=== PATIENT | male | born 1945 | race Caucasian/White ===

== ENCOUNTER 2024-11-14 22:35 | Observation (INO) ==
[2024-11-15] MEDS: 0.9 % SODIUM CHLORIDE 1000 ML 1,000 ML IV SCH (03:31)
[2024-11-15] MEDS: ALBUMIN HUMAN 25% 100 ML IV SCH (03:36)
[2024-11-15] MEDS: 0.9 % SODIUM CHLORIDE 1000 ML 1,000 ML IV ONE (07:44)
[2024-11-15] MEDS: ALBUMIN HUMAN 25% 200 ML IV ONE (07:44)
[2024-11-15 12:26] VITALS: RESP 16
[2024-11-15 12:54] VITALS: PULSE 59
--- NOTE | 2024-11-15 12:59 | Discharge Summary ---
DS: Providers Provider Date of admission: 11/14/24 22:35 Primary care physician: Jane Ritchie DO Admitting clinician: Jane Ritchie Attending physician on admission: Omari Feliz Attending physician on discharge: America Hurt Discharging clinician: America Hurt Anticipated date of discharge: 11/15/24 DS: Diagnosis Discharge Diagnosis (1) Low hemoglobin: Plan Low hemoglobin Administered onbe unit PRBC, albumin and iv fluids as directed on admission from referring physician. DS: Summary Hospital Course Hospital Course: Mr. Tovar was sent over to the hospital for low hemoglobin 7.4, to receive blood transfusion, and albumin, IV Fluids. He received 2000ml NS, on unit PRBC and Albumin. Stay uneventful with patient at his baseline. Ready to discharge back to [facility]. Time spent discussing smoking cessation with patient: more than 10 minutes Status at Discharge Cognitive/behavioral status at discharge: Stable Functional status at discharge: bed bound Overall status at discharge: patient is back to baseline Time Spent with Patient Time attestation: Total time spent providing and/or coordinating discharge services: Time spent: greater than 30 minutes Exam Constitutional: normal general appearance (weak, labile. Easy to arouse. ) Vital Signs - 24 hr 11/15/24 01:16 11/15/24 01:16 11/15/24 03:52 Temperature 97.9 F 97.8 F Pulse Rate Pulse Rate [Brachi al] 61 81 Respiratory Rate 16 16 Blood Pressure Blood Pressure [Le ft Arm] 128/53 139/56 Pulse Oximetry 95 96 Oxygen Delivery Me thod Room Air Room Air Room Air 11/15/24 08:00 11/15/24 08:56 11/15/24 08:56 Temperature 98.5 F 98.5 F 98.5 F Pulse Rate 73 73 Pulse Rate [Brachi al] 73 Respiratory Rate 16 16 16 Blood Pressure 104/48 104/48 Blood Pressure [Le ft Arm] 104/48 Pulse Oximetry 92 L 92 L 92 L Oxygen Delivery Ms thod Room Air 11/15/24 09:15 11/15/24 09:26 11/15/24 10:15 Temperature 98.6 F 98.5 F 98.6 F Pulse Rate 69 73 69 Pulse Rate [Brachi al] Respiratory Rate 16 16 16 Blood Pressure 101/34 104/48 117/45 Blood Pressure [Le ft Arm] Pulse Oximetry 92 L 92 L Oxygen Delivery Me thod 11/15/24 11:15 11/15/24 12:15 Temperature 98.5 F 98.6 F Pulse Rate 60 52 L Pulse Rate [Brachi al] Respiratory Rate 18 16 Blood Pressure 108/40 114/38 Blood Pressure [Le ft Arm] Pulse Oximetry 93 L 93 L [facility]: normocephalic and head/scalp atraumatic Eyes: conjunctivae normal Respiratory: breath sounds equal bilaterally and clear to auscultation bilaterally Cardiovascular: normal heart rate noted and regular rhythm noted Gastrointestinal: abdomen soft to palpation Genitourinary: deferred Extremities: normal to inspection Neurology: no sensory deficits noted Psychiatry: cooperative and affect normal Skin: warm pale skin DS: Data Data Completed and Pending Labs on day of discharge: Labs from last 24 hours 11/15/24 11/14/24 01:15 01:15 Magnesium 2.2 Blood Type A Positive Antibody Screen Negative Crossmatch (AHG) See Detail Discharge Plan Discharge Discharge Medications: No Action latanoprost 0.005 % drops 1 drp OPHTHALMIC (EYE) DAILY acetaminophen 325 mg tablet 650 mg PO Q6H PRN (Reason: fever or pain) ascorbic acid (vitamin C) 500 mg tablet 500 mg PO DAILY aspirin 81 mg tablet,chewable 81 mg PO DAILY baclofen 10 mg tablet 10 mg PO Q8H PRN (Reason: muscle spasm) diphenhydramine HCl [[id number]] 25 mg tablet 50 mg PO Q8H PRN (Reason: itching) docusate sodium 50 mg/5 mL liquid 100 mg feeding tube BID pregabalin 50 mg capsule 50 mg feeding tube DAILY polyethylene glycol 3350 [Miralax] 17 gram powder in packet 17 g PO BID PRN (Reason: constipation) mirtazapine 15 mg tablet 7.5 mg feeding tube BEDTIME multivitamin Tablet 1 tab feeding tube DAILY triamcinolone acetonide [24 Hour Nasal Allergy] 55 mcg aerosol,spray 1 spray intranasal BID Rx Instructions: administer into each nostril Advanced Eye Relief 1-0.3 % drops 1 drp ophthalmic (eye) DAILY PRN (Reason: dry eye(s)) sennosides [senna] 8.6 mg tablet 8.6 mg PO BEDTIME hydroxyzine pamoate 25 mg capsule 25 mg feeding tube QID ondansetron HCl 4 mg tablet 4 mg feeding tube Q8H PRN (Reason: nausea and vomiting) bumetanide 2 mg tablet 2 mg PO DAILY Qty: 30 0RF Rx Instructions: daily weights atorvastatin 40 mg tablet 40 mg feeding tube DAILY lansoprazole 30 mg capsule,delayed release(DR/EC) 30 mg feeding tube DAILY fenofibrate 54 mg tablet 54 mg feeding tube BEDTIME tamsulosin 0.4 mg capsule 0.4 mg PO BID Rx Instructions: G-TUBE furosemide 40 mg tablet 40 mg feeding tube DAILY carvedilol 6.25 mg tablet 6.25 mg feeding tube BID montelukast 10 mg tablet 10 mg feeding tube BEDTIME oxycodone 5 mg tablet 5 mg feeding tube Q4H PRN (Reason: pain) ipratropium-albuterol 0.5 mg-3 mg(2.5 mg base)/3 mL solution for nebulization 3 ml inhalation Q6H nystatin [Nystop] 100,000 unit/gram powder 1 applic TOPICAL DAILY PRN (Reason: YEAST) Rx Instructions: APPLY TO PERINEAL AREA PRN FOR YEAST UNTIL HEALED OR RESOLVED Hospital Course: Mr. Tovar was sent over to the hospital for low hemoglobin 7.4, to receive blood transfusion, and albumin, IV Fluids. He received 2000ml NS, on unit PRBC and Albumin. Stay uneventful with patient at his baseline. Ready to discharge back to Detention. Print Language: Armenian Forms: Portal[facility] Access Inst
[2024-11-15 13:43] VITALS: BP 97/55; TEMP 98.4
[2024-11-15 16:01] LABS: Carbon Dioxide 20 mmol/L (21-32); Glucose 80 mg/dL (70-110); Potassium 4.9 mmol/L (3.6-5.2); Sodium 150 mmol/L (136-145)
[2024-11-15 16:05] LABS: Basophils%(Percent) Auto 0.6 (0.0-1.3); Eosinophils#(Absolute)Auto 0.7 (0.0-0.3); Eosinophils%(Percent) Auto 8.1 % (0.0-4.0); Granulocytes % - Auto 72.1 % (49.1-73.1); Granulocytes#(Absolute)- Auto 6.2 (2.0-6.2); Mean Corpuscular Volume 95.2 fl (81.9-96.5); Monocytes #(Absolute)- Auto 0.6 (0.2-0.8); Monocytes %(Percent)- Auto 7.2 % (4.5-10.7); Platelet Count 110 K/uL (142-355); White Blood Count 8.6 K/uL (3.7-9.6)
[2024-11-15 16:20] LABS: Hematocrit 23.6 % (41.3-50.1)
== END 2024-11-15 13:15 ==
LOC: MS
PROVIDERS: ADMIT Family Medicine; ATTEND Family Medicine
DX: D64.9 Anemia, unspecified

== ENCOUNTER 2024-11-30 02:28 | Observation (INO) ==
--- NOTE | 2024-11-30 03:01 | Emergency Department Note ---
HPI - Altered Mental Status General Chief Complaint: Altered Mental Status Stated Complaint: AMS Time Seen by Provider: 11/30/24 02:36 Source: family and caregiver Limitations: altered mental status History of Present Illness HPI narrative: 79-year-old male brought over for nursing staff from the [facility], noted with increased confusion, lethargy, and generalized weakness throughout the day and this evening. Per correction staff patient was noted to be less responsive this evening around dinner, continued into the inspector and sorter. Patient with a plethora of healthcare issues to include recurrent sepsis from pneumonia and UTIs. On arrival to the ED patient alert orient x 1, confused. Daughter at bedside. MD complaint: altered mental status Severity: moderate Consistency of symptoms: getting Worse Context: history of similar presentation Associated symptoms: malaise and weakness Related Data Home Medications Medication Instructions Recorded Confirmed atorvastatin 40 mg tablet 40 mg feeding tube DAILY 01/29/24 10/30/24 carvedilol 6.25 mg tablet 6.25 mg feeding tube BID 01/29/24 10/30/24 fenofibrate 54 mg tablet 54 mg feeding tube BEDTIME 01/29/24 10/30/24 furosemide 40 mg tablet 40 mg feeding tube DAILY 01/29/24 10/30/24 ipratropium 0.5 mg-albuterol 3 mg 3 ml inhalation Q6H 01/29/24 10/30/24 (2.5 mg base)/3 mL nebulization soln lansoprazole 30 mg capsule,delayed 30 mg feeding tube DAILY 01/29/24 10/30/24 release montelukast 10 mg tablet 10 mg feeding tube BEDTIME 01/29/24 10/30/24 nystatin 100,000 unit/gram topical 1 applic topical DAILY PRN YEAST 01/29/24 10/30/24 powder (Nystop) oxycodone 5 mg tablet 5 mg feeding tube Q4H PRN pain 01/29/24 10/30/24 tamsulosin 0.4 mg capsule 0.4 mg PO BID 01/29/24 10/30/24 latanoprost 0.005 % eye drops 1 drp ophthalmic (eye) DAILY 06/21/24 10/30/24 acetaminophen 325 mg tablet 650 mg PO Q6H PRN fever or pain 10/30/24 10/30/24 ascorbic acid (vitamin C) 500 mg 500 mg PO DAILY 10/30/24 10/30/24 tablet aspirin 81 mg chewable tablet 81 mg PO DAILY 10/30/24 10/30/24 baclofen 10 mg tablet 10 mg PO Q8H PRN muscle spasm 10/30/24 10/30/24 diphenhydramine HCl 25 mg tablet 50 mg PO Q8H PRN itching 10/30/24 10/30/24 ([id number]) docusate sodium 50 mg/5 mL oral 100 mg feeding tube BID 10/30/24 10/30/24 liquid hydroxyzine pamoate 25 mg capsule 25 mg feeding tube QID 10/30/24 10/30/24 mirtazapine 15 mg tablet 7.5 mg feeding tube BEDTIME 10/30/24 10/30/24 multivitamin 1 tab feeding tube DAILY 10/30/24 10/30/24 ondansetron HCl 4 mg tablet 4 mg feeding tube Q8H PRN nausea 10/30/24 10/30/24 and vomiting polyethylene glycol 3350 17 gram 17 g PO BID PRN constipation 10/30/24 10/30/24 oral powder packet (Miralax) pregabalin 50 mg capsule 50 mg feeding tube DAILY 10/30/24 10/30/24 propylene glycol 1 %-glycerin 0.3 1 drp ophthalmic (eye) DAILY PRN 10/30/24 10/30/24 % eye drops (Advanced Eye Relief) dry eye(s) sennosides 8.6 mg tablet (senna) 8.6 mg PO BEDTIME 10/30/24 10/30/24 triamcinolone acetonide 55 mcg 1 spray intranasal BID 10/30/24 10/30/24 nasal spray aerosol (24 Hour Nasal Allergy) Previous Rx's Medication Instructions Recorded bumetanide 2 mg tablet 2 mg PO DAILY chf #30 tabs 11/03/24 Allergies Allergy/AdvReac Type Severity Reaction Status Date / Time cefdinir Allergy Mild Verified 11/30/24 03:17 codeine Allergy Mild Verified 11/30/24 03:17 primidone Allergy Mild Verified 11/30/24 03:17 Review of Systems Status of ROS unobtainable due to medical condition and unobtainable due to mental status [facility] Medical History (Updated 11/30/24 @ 03:28 by Liana Phelps RN) CHF (congestive heart failure), NYHA class III End of life care Acute renal failure superimposed on stage 5 chronic kidney disease, not on chronic dialysis Moderate protein malnutrition Pruritic dermatitis Cognitive communication deficit BPH (benign prostatic hyperplasia) Secondary hyperparathyroidism (of renal origin) Chronic kidney disease, stage 4 (severe) Acute kidney failure Osteoarthritis Gout Cellulitis of groin GERD (gastroesophageal reflux disease) Peripheral vascular disease Heart failure Atherosclerotic heart disease Hypertension Glaucoma Toxic encephalopathy Sleep apnea Adrenocortical insufficiency Diabetes mellitus Anemia Urinary retention Vascular dementia of 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 behavioral disturbance Generalized edema Acute nephrotic syndrome ARF (acute respiratory failure) Melioidosis Difficulty in walking Dysphagia Acute cystitis without hematuria COPD (chronic obstructive pulmonary disease) CHF (congestive heart failure) Social History Smoking status: never smoker Problems where you live: no known problems Highest level of school completed/degree received: decline to answer Feel stressed/tense/nervous/anxious/difficulty sleeping: not at all Life stressor details: n/a Due to disability, difficulty making decisions: No Exam Constitutional: normal general appearance and no apparent distress Vital Signs - 24 hr 11/30/24 02:29 11/30/24 02:32 11/30/24 03:00 Temperature 97.9 F Pulse Rate 66 68 Respiratory Rate 12 15 Blood Pressure 124/57 129/59 Pulse Oximetry 84 L 96 98 Oxygen Delivery Me thod Room Air Nasal Cannula Nasal Cannula Oxygen Flow Rate 2 2 11/30/24 04:00 11/30/24 04:26 Temperature Pulse Rate 82 82 Respiratory Rate 15 18 Blood Pressure 124/67 134/64 Pulse Oximetry 99 99 Oxygen Delivery Me thod Nasal Cannula Nasal Cannula Oxygen Flow Rate 2 2 A&Ox1, confused, lethargic HENMT: normocephalic and head/scalp atraumatic dry mucus membranes Eyes: PERRL and conjunctivae normal Neck/C-Spine: visual inspection normal, trachea midline and supple Lymph: no lymphadenopathy noted Chest: inspection of chest normal Respiratory: SaO2 89-90% RA, Coarse lung sounds, mild increased work of breathing Cardiovascular: normal heart rate noted, regular rhythm noted, no gallop, no rub, no murmur and no JVD Gastrointestinal: abdomen normal to inspection, abdomen soft to palpation, nontender to palpation, no masses and no ascites PEG tube present Genitourinary: no CVA tenderness Back/Pelvis: spine normal to inspection Extremities: Multiple decubitus ulcers, vascular ulcerations of the toes, bilateral Neurology: Alert and oriented 1, confused, lethargic Psychiatry: as above Skin: skin color normal Course Reevaluation(s) Reevaluation #1: COURSE: Vital signs stable, patient resting with family at bedside. IV fluid normal saline 75 cc/hour, continuous Patient pending admission Vital Signs Vital signs: Vital Signs Temperature 97.9 F 11/30/24 02:29 Pulse Rate 66 11/30/24 02:29 Respiratory Rate 12 11/30/24 02:29 Blood Pressure 124/57 11/30/24 02:29 Pulse Oximetry 84 L 11/30/24 02:29 Oxygen Delivery Method Room Air 11/30/24 02:29 Temperature 97.9 F 11/30/24 02:29 Pulse Rate 82 11/30/24 04:26 Respiratory Rate 18 11/30/24 04:26 Blood Pressure 134/64 11/30/24 04:26 Pulse Oximetry 99 11/30/24 04:26 Oxygen Delivery Method Nasal Cannula 11/30/24 04:26 Oxygen Flow Rate 2 11/30/24 04:26 MDM - Altered Mental Status MDM Narrative Medical decision making narrative: History and physical exam consistent with Acute hyponatremia, hypochloremia secondary to underlying dehydration. Patient with multiple comorbidities to include aspiration risk with likely secondarily contributes to his episodes of dehydration. Vital signs stable, neurobaseline in the ED. CT head negative. Chest x-ray stable, chronic findings. Labs as annotated. IV normal saline gentle hydration for his EDC. Patient will be admitted to observation for continued therapy. Differential diagnosis as below. Differential Diagnosis Differential diagnosis: Likely altered mental status, delirium, dementia, hypoglycemia, hyponatremia, subarachnoid hemorrhage and sepsis Medical Records Attestation: I reviewed the patient's medical records. Lab Data Attestation: I reviewed the patient's lab results. Labs: Lab Results 11/30/24 11/30/24 Range/Units 02:50 05:15 WBC 5.3 (3.7-9.6) K/uL RBC 2.9 L (4.40-5.80) M/uL Hgb 9.5 L (14.0-17.4) gm/dL Hct 28.9 L (41.3-50.1) % MCV 98.6 H (81.9-96.5) fl MCH 32.4 (27.6-33.7) pg MCHC 32.8 L (33.0-35.7) g/dl RDW 16.5 H (11.0-14.8) % Plt Count 114 L (142-355) K/uL MPV 10.9 H (6.0-10.4) fl Gran % 55.1 (49.1-73.1) % Lymph % (Auto) 21.7 (17.6-39.05) % [place] % (Auto) 9.7 (4.5-10.7) % Eos % (Auto) 12.9 H (0.0-4.0) % Baso % (Auto) 0.6 (0.0-1.3) Lymph # (Auto) 1.1 (0.8-2.9) [place] # (Auto) 0.5 (0.2-0.8) Eos # (Auto) 0.7 H (0.0-0.3) Baso # (Auto) 0.0 (0.0-0.1) Absolute Gran (auto) 2.9 (2.0-6.2) Sodium 148 H (136-145) mmol/L Potassium 4.2 (3.6-5.2) mmol/L Chloride 112.0 H (98-107) mmol/L Carbon Dioxide 27 (21-32) mmol/L Anion Gap 9.0 (4-14) mEq/L BUN 139 H* (7-18) mg/dL Creatinine 3.7 H* (0.6-1.3) mg/dL Estimated GFR 15.9 (>59.9) Glucose 115 H (70-110) mg/dL Calcium 10.0 (8.5-10.1) mg/dL Magnesium 2.6 H (1.8-2.4) mg/dL Total Bilirubin 0.26 (0.0-1.0) mg/dL AST 44 H (15-37) U/L ALT 26 L (30-65) U/L Alkaline Phosphatase 146 H (50-136) U/L Troponin I High Sens 13.40 (4.0-60.4) ng/L Total Protein 5.7 L (6.4-8.2) g/dL Albumin 1.7 L (3.4-5.0) g/dL Lipase 25.0 (16.0-77.0) U/L Urine Color Yellow (STRAW/YELL.) Urine Appearance Clear (CLEAR) Ur Specific [place] 1.010 (1.001-1.035) Urine Protein 2+ (NEGATIVE) Urine Glucose (UA) Normal (NORMAL) Urine Ketones Negative (NEGATIVE) Urine Occult Blood Negative (NEG - TRACE) Urine Nitrite Negative (NEGATIVE) Urine Bilirubin Negative (NEGATIVE) Urine Urobilinogen Normal (NORMAL) Ur Leukocyte Esterase Negative (NEGATIVE) Fluid pH 6.0 (5 - 9) Imaging Data Imaging ordered: Chest x-ray and CT scan - head Attestation: I have reviewed the pertinent imaging results. Radiologist's impression: chronic findings, nothing acute ECG Data Attestation: I personally reviewed and interpreted this ECG as follows: ECG interpretation date: 11/30/24 Interpretation: Sinus Rhythm, rate 62, 1st degree AV Block, no STEMI Critical Care Time Critical Care Time Critical Care Time: Yes Total Critical Care Time: 35 Attestation: Acute/chronic renal failure, electrolyte protocols, multiple consultations, admission Discharge Plan Discharge Patient Disposition: Admitted As Observation Condition: Improved Chief Complaint: Altered Mental Status Clinical Impression: Acute hypernatremia, Dehydration, Chronic kidney insufficiency Interventions: ED Discharge Assessment Last Done: 11/30/24 08:00 ED Discharge Vital Sign Last Done: 11/30/24 08:00 Emergency Department Charge Sheet Last Done: 11/30/24 08:01 Time of Disposition: 08:02 Discharge Date/Time: 11/30/24 08:01
[2024-11-30 03:06] LABS: Basophils%(Percent) Auto 0.6 (0.0-1.3); Eosinophils#(Absolute)Auto 0.7 (0.0-0.3); Eosinophils%(Percent) Auto 12.9 % (0.0-4.0); Granulocytes % - Auto 55.1 % (49.1-73.1); Granulocytes#(Absolute)- Auto 2.9 (2.0-6.2); Hematocrit 28.9 % (41.3-50.1); Mean Corpuscular Volume 98.6 fl (81.9-96.5); Monocytes #(Absolute)- Auto 0.5 (0.2-0.8); Monocytes %(Percent)- Auto 9.7 % (4.5-10.7); Platelet Count 114 K/uL (142-355); White Blood Count 5.3 K/uL (3.7-9.6)
[2024-11-30 03:18] LABS: Potassium 4.2 mmol/L (3.6-5.2)
[2024-11-30] MEDS: ACETAMINOPHEN 1000 MG/100 ML 1,000 MG/100 ML IV.SOLN IV PRN (04:30)
[2024-11-30 05:23] LABS: Urine Appearance CLEAR (CLEAR); Urine Blood NEGATIVE (NEG - TRACE); Urine Color YELLOW (STRAW/YELL.); Urine Urobilinogen Normal (NORMAL)
[2024-11-30] MEDS ORDERED: ONDANSETRON HCL/PF 4 MG/2 ML VIAL INJ PRN (07:22)
[2024-11-30] MEDS ORDERED: PROPYLENE GLYCOL GLYCERIN OPTH PRN (07:25)
[2024-11-30] MEDS ORDERED: BACLOFEN 10 MG TABLET PO PRN (07:25)
[2024-11-30] MEDS ORDERED: NYSTATIN 15 GM POWDER TOPICAL PRN (07:25)
[2024-11-30] MEDS: DOCUSATE SODIUM 50 MG/5 ML PEG SCH (09:51)
[2024-11-30] MEDS: 0.9 % SODIUM CHLORIDE 1000 ML 1,000 ML IV SCH (10:06)
[2024-11-30] MEDS: OXYCODONE HCL 5 MG TABLET PO PRN (10:07)
[2024-11-30] MEDS: PREGABALIN 25 MG CAPSULE PO SCH (10:08)
[2024-11-30] MEDS: ATORVASTATIN CALCIUM 40 MG TABLET PEG SCH (10:08)
[2024-11-30] MEDS: FUROSEMIDE 40 MG TABLET PEG SCH (10:08)
[2024-11-30] MEDS: BUMETANIDE 1 MG TABLET PO SCH (10:08)
[2024-11-30] MEDS: ASPIRIN 81 MG TAB.CHEW PO SCH (10:09)
[2024-11-30] MEDS: carvediloL 6.25 MG TABLET PO SCH (10:09)
[2024-11-30] MEDS: LATANOPROST 0.005% OPTH SCH (10:09)
[2024-11-30] MEDS: MULTIVITAMIN TABLET PEG SCH (10:10)
[2024-11-30] MEDS: IPRATROPIUM/ALBUTEROL SULFATE 3 ML AMPUL.NEB INH SCH (11:57)
[2024-11-30] MEDS: LANSOPRAZOLE 30 MG PEG SCH (11:57)
[2024-11-30] MEDS: PREGABALIN 50 MG FEED TUBE SCH (11:58)
[2024-11-30] MEDS: [UNRECOGNIZED DRUG - REMARK] INH SCH (11:58)
[2024-11-30] MEDS: MIRTAZAPINE 15 MG TABLET PO SCH (20:11)
[2024-11-30] MEDS: FENOFIBRATE 54 MG TABLET PO SCH (20:11)
[2024-11-30] MEDS: SENNOSIDES 8.6 MG TABLET PO SCH (20:11)
[2024-11-30] MEDS: MONTELUKAST SODIUM 10 MG TABLET PO SCH (20:11)
[2024-12-01 08:55] LABS: Potassium 4.2 mmol/L (3.6-5.2)
[2024-12-01 08:58] LABS: Basophils%(Percent) Auto 0.7 (0.0-1.3); Eosinophils#(Absolute)Auto 0.6 (0.0-0.3); Eosinophils%(Percent) Auto 10.4 % (0.0-4.0); Granulocytes % - Auto 56.6 % (49.1-73.1); Hematocrit 25.6 % (41.3-50.1); Mean Corpuscular Volume 101.9 fl (81.9-96.5); Monocytes #(Absolute)- Auto 0.5 (0.2-0.8); Monocytes %(Percent)- Auto 10.2 % (4.5-10.7); Platelet Count 115 K/uL (142-355); White Blood Count 5.3 K/uL (3.7-9.6)
--- NOTE | 2024-12-01 09:07 | History & Physical Report ---
H&P: HPI History of Present Illness Chief complaint: hypernatremia Narrative: Mr. Tovar was admitted from the [facility] on 11/30/24 due to increasing AMS. Daughter states he has progressively become confused during the week and [facility] staff accounts that he became altered yesterday evening. He has multiple comorbidities with normal admissions for UTI or PNA. CBC at his baseline. CMP showed elevated creatinine of 3.7 with his usual range near 2.0. BUN elevated 139, usual between 90-110. Daughter at bedside states they will not pursue dialysis. UA negative as well as CT head. CXR did show R pleural opacities which appears to be ongoing since September although clear prior to then; he has undergone abx treatment during those admits. He is oriented for nursing staff, but during assessment does have some garbled speech and fell asleep during assessment. He is currently on oxygen for admitting low O2 saturations in the 80s and he does not use O2 at the [facility]. He has had some hypotension since admit but improving. Tmax in the last 24hrs 99.7. Review of Systems Status of ROS: unobtainable due to medical condition and unobtainable due to mental status Neurological: Reports: confusion, behavioral changes and other (lethargy) [facility] Medical History (Updated 12/01/24 @ 09:40 by Jeffrey Fu NP) Constipation CHF (congestive heart failure), NYHA class III End of life care Acute renal failure superimposed on stage 5 chronic kidney disease, not on chronic dialysis Moderate protein malnutrition Pruritic dermatitis Cognitive communication deficit BPH (benign prostatic hyperplasia) Secondary hyperparathyroidism (of renal origin) Chronic kidney disease, stage 4 (severe) Acute kidney failure Osteoarthritis Gout Cellulitis of groin GERD (gastroesophageal reflux disease) Peripheral vascular disease Heart failure Atherosclerotic heart disease Hypertension Glaucoma Toxic encephalopathy Sleep apnea Adrenocortical insufficiency Diabetes mellitus Anemia Urinary retention Vascular dementia of 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 behavioral disturbance Generalized edema Acute nephrotic syndrome ARF (acute respiratory failure) Melioidosis Difficulty in walking Dysphagia Acute cystitis without hematuria COPD (chronic obstructive pulmonary disease) CHF (congestive heart failure) Social History Smoking status: never smoker Problems where you live: no known problems Highest level of school completed/degree received: high school Feel stressed/tense/nervous/anxious/difficulty sleeping: not at all Life stressor details: n/a Due to disability, difficulty making decisions: No Meds Home Medications and Allergies Home Medications Medication Instructions Recorded Confirmed Type atorvastatin 40 mg tablet 40 mg feeding tube DAILY 01/29/24 11/30/24 History carvedilol 6.25 mg tablet 6.25 mg feeding tube BID 01/29/24 11/30/24 History fenofibrate 54 mg tablet 54 mg feeding tube BEDTIME 01/29/24 11/30/24 History furosemide 40 mg tablet 40 mg feeding tube DAILY 01/29/24 11/30/24 History ipratropium 0.5 mg-albuterol 3 mg 3 ml inhalation Q6H 01/29/24 11/30/24 History (2.5 mg base)/3 mL nebulization soln lansoprazole 30 mg capsule,delayed 30 mg feeding tube DAILY 01/29/24 11/30/24 History release montelukast 10 mg tablet 10 mg feeding tube BEDTIME 01/29/24 11/30/24 History nystatin 100,000 unit/gram topical 1 applic topical DAILY PRN YEAST 01/29/24 11/30/24 History powder (Nystop) oxycodone 5 mg tablet 5 mg feeding tube Q4H PRN pain 01/29/24 11/30/24 History tamsulosin 0.4 mg capsule 0.4 mg PO BID 01/29/24 11/30/24 History latanoprost 0.005 % eye drops 1 drp ophthalmic (eye) DAILY 06/21/24 11/30/24 History acetaminophen 325 mg tablet 650 mg PO Q6H PRN fever or pain 10/30/24 11/30/24 History ascorbic acid (vitamin C) 500 mg 500 mg PO DAILY 10/30/24 11/30/24 History tablet aspirin 81 mg chewable tablet 81 mg PO DAILY 10/30/24 11/30/24 History baclofen 10 mg tablet 10 mg PO Q8H PRN muscle spasm 10/30/24 11/30/24 History diphenhydramine HCl 25 mg tablet 50 mg PO Q8H PRN itching 10/30/24 11/30/24 History ([id number]) docusate sodium 50 mg/5 mL oral 100 mg feeding tube BID 10/30/24 11/30/24 History liquid mirtazapine 15 mg tablet 7.5 mg feeding tube BEDTIME 10/30/24 11/30/24 History multivitamin 1 tab feeding tube DAILY 10/30/24 11/30/24 History ondansetron HCl 4 mg tablet 4 mg feeding tube Q8H PRN nausea 10/30/24 11/30/24 History and vomiting polyethylene glycol 3350 17 gram 17 g PO BID PRN constipation 10/30/24 11/30/24 History oral powder packet (Miralax) pregabalin 50 mg capsule 50 mg feeding tube DAILY 10/30/24 11/30/24 History propylene glycol 1 %-glycerin 0.3 1 drp ophthalmic (eye) DAILY PRN 10/30/24 11/30/24 History % eye drops (Advanced Eye Relief) dry eye(s) sennosides 8.6 mg tablet (senna) 8.6 mg PO BEDTIME 10/30/24 11/30/24 History triamcinolone acetonide 55 mcg 1 spray intranasal BID 10/30/24 11/30/24 History nasal spray aerosol (24 Hour Nasal Allergy) bumetanide 2 mg tablet 2 mg PO DAILY chf #30 tabs 11/03/24 11/30/24 Rx ferrous sulfate 325 mg (65 mg 325 mg PO DAILY 11/30/24 11/30/24 History iron) tablet Allergies Allergy/AdvReac Type Severity Reaction Status Date / Time cefdinir Allergy Mild Verified 11/30/24 03:17 codeine Allergy Mild Verified 11/30/24 03:17 primidone Allergy Mild Verified 11/30/24 03:17 Exam Constitutional normal general appearance and no apparent distress Vital Signs - 24 hr 11/30/24 09:47 11/30/24 09:47 11/30/24 11:34 Temperature 97.9 F 97.7 F Pulse Rate [Left Brachial] 70 Pulse Rate [Right Radial] 75 Respiratory Rate 20 19 Blood Pressure Blood Pressure [Left Arm] 133/59 Blood Pressure [Left Radial Artery] 123/55 Pulse Oximetry 96 97 Oxygen Delivery Method Nasal Cannula Nasal Cannula Nasal Cannula Oxygen Flow Rate 2 2 2 11/30/24 16:18 11/30/24 19:17 11/30/24 19:46 Temperature 97.9 F 98.0 F Pulse Rate [Left Brachial] 67 Pulse Rate [Right Radial] 78 Respiratory Rate 17 15 16 Blood Pressure Blood Pressure [Left Arm] 86/43 Blood Pressure [Left Radial Artery] 104/59 Pulse Oximetry 96 96 Oxygen Delivery Method Nasal Cannula Room Air Oxygen Flow Rate 2 11/30/24 20:13 11/30/24 23:37 12/01/24 03:46 Temperature 99.7 F H 99.0 F Pulse Rate [Left Brachial] 81 Pulse Rate [Right Radial] 65 Respiratory Rate 17 15 Blood Pressure 86/43 Blood Pressure [Left Arm] 108/50 104/50 Blood Pressure [Left Radial Artery] Pulse Oximetry 95 97 Oxygen Delivery Method Room Air Room Air Oxygen Flow Rate 12/01/24 07:57 Temperature 99.7 F H Pulse Rate [Left Brachial] Pulse Rate [Right Radial] 70 Respiratory Rate 20 Blood Pressure Blood Pressure [Left Arm] Blood Pressure [Left Radial Artery] 99/57 Pulse Oximetry 95 Oxygen Delivery Method Nasal Cannula Oxygen Flow Rate 1 HENMT normocephalic and head/scalp atraumatic dry mucus membranes Eyes PERRL and conjunctivae normal Neck/C-Spine visual inspection normal, trachea midline and supple Lymph no lymphadenopathy noted Chest inspection of chest normal Respiratory no wheezes (Bilateral wheezing) Cardiovascular normal heart rate noted, regular rhythm noted, no gallop, no rub, no murmur and no JVD Gastrointestinal abdomen normal to inspection, abdomen soft to palpation, nontender to palpation, no masses and no ascites PEG tube present Genitourinary no CVA tenderness Back/Pelvis spine normal to inspection Extremities Multiple decubitus ulcers, vascular ulcerations of the toes, bilateral Neurology Alert and oriented 1, confused, lethargic Psychiatry as above Skin skin color normal Results Labs Labs: CBC 12/01/24 Range/Units 08:30 WBC 5.3 (3.7-9.6) K/uL RBC 2.5 L (4.40-5.80) M/uL Hgb 8.4 L (14.0-17.4) gm/dL Hct 25.6 L (41.3-50.1) % Plt Count 115 L (142-355) K/uL Gran % 56.6 (49.1-73.1) % Lymph % (Auto) 22.1 (17.6-39.05) % [place] % (Auto) 10.2 (4.5-10.7) % Eos % (Auto) 10.4 H (0.0-4.0) % Baso % (Auto) 0.7 (0.0-1.3) Lymph # (Auto) 1.2 (0.8-2.9) [place] # (Auto) 0.5 (0.2-0.8) Eos # (Auto) 0.6 H (0.0-0.3) Baso # (Auto) 0.0 (0.0-0.1) Absolute Gran (auto) 3.0 (2.0-6.2) Urine 11/30/24 05:15 Urine Color Yellow Urine Appearance Clear Ur Specific [place] 1.010 Urine Protein 2+ Urine Glucose (UA) Normal Imaging Imaging ordered: Chest x-ray ([facility] [address] [place] [address] XRay Report Signed Patient: Scout Tovar MR#: [id number] : 1945 Acct:[id number] Age/Sex: 79 / M ADM Date: 11/30/24 Loc: ED Attending Dr: Ordering Physician: Jerel Palomino Date of Service: 11/30/24 Procedure(s): XR chest 1V) and CT scan - head ( [facility] [address] [place] [address] CT Scan Report Signed Patient: Scout Tovar MR#: [id number] : 1945 Acct:[id number] Age/Sex: 79 / M ADM Date: 11/30/24 Loc: ED Attending Dr: Ordering Physician: Jerel Palomino Date of Service: 11/30/24 Procedure(s): CT head) Results Metabolic Panel: Sodium 147 mmol/L (136-145) H 12/01/24 08:30 12/01/24 Potassium 4.2 mmol/L (3.6-5.2) 12/01/24 08:30 12/01/24 Chloride 113.0 mmol/L (98-107) H 12/01/24 08:30 5 Carbon Dioxide 24 mmol/L (21-32) 12/01/24 08:30 12/01/24 Anion Gap 10.0 mEq/L (4-14) 12/01/24 08:30 12/01/24 Calcium 9.0 mg/dL (8.5-10.1) 12/01/24 08:30 12/01/24 Glucose 95 mg/dL (70-110) 12/01/24 08:12/01/24 BUN 132 mg/dL (7-18) H* 12/01/24 08:12/01/24 Creatinine 3.6 mg/dL (0.6-1.3) H 12/01/24 08:12/01/24 Total Protein 5.4 g/dL (6.4-8.2) L 12/01/24 08:12/01/24 Albumin 1.5 g/dL (3.4-5.0) L 12/01/24 08:12/01/24 AST 38 U/L (15-37) H 12/01/24 08:12/01/24 ALT 22 U/L (30-65) L 12/01/24 08:12/01/24 Alkaline Phosphatase 143 U/L (50-136) H 12/01/24 08: 5 Total Bilirubin 0.31 mg/dL (0.0-1.0) 12/01/24 08:12/01/24 Estimated GFR 16.5 (>59.9) 12/01/24 08:12/01/24 Assessment and Plan Assessment and Plan (1) Acute renal failure superimposed on stage 5 chronic kidney disease, not on chronic dialysis: Qualifiers: Acute renal failure type: unspecified Qualified Code(s): N17.9 - Acute kidney failure, unspecified; N18.5 - Chronic kidney disease, stage 5 Code(s): N17.9 - Acute kidney failure, unspecified; N18.5 - Chronic kidney disease, stage 5 (2) Pneumonia of right lower lobe due to infectious organism: Code(s): J18.9 - Pneumonia, unspecified organism (3) CHF (congestive heart failure), NYHA class III: Code(s): I50.9 - Heart failure, unspecified (4) 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 ARF Admit [id number] D5 1/2NS @100ml/hr 1999 ADA diet Hold diuretics CBC CMP daily 2. PNA/COPD Levaquin 750mg IV now, then 500mg q48hrs Duoneb QID Pulmicort BID 3, 4.CAD ASA 81mg po daily Atorvastatin 40mg po HS Coreg 6.25mg po BID 5. Constipation Miralax 17gmp po daily Sennasides 8.6 po HS
[2024-12-01] MEDS: TAMSULOSIN HCL 0.4 MG CAPSULE PO SCH (09:24)
[2024-12-01] MEDS: DEXTROSE 5 %-0.45 % SOD CHLORD 1,000 ML IV SCH (09:24)
[2024-12-01] MEDS: FERROUS SULFATE 325 MG TABLET PO SCH (09:24)
[2024-12-01] MEDS: LEVOFLOXACIN/D5W 750 MG/150 ML 750 MG/150 ML PIGGYBACK IV ONE (11:25)
[2024-12-01] MEDS: IPRATROPIUM/ALBUTEROL SULFATE 3 ML AMPUL.NEB INH SCH (13:09)
[2024-12-01] MEDS ORDERED: [UNRECOGNIZED DRUG - MIXTURE] OPTH PRN (14:58)
[2024-12-01] MEDS: BUDESONIDE 0.5 MG/2 ML AMPUL.NEB INH SCH (19:54)
[2024-12-02] MEDS: ACETAMINOPHEN 1000 MG/100 ML 1,000 MG/100 ML IV.SOLN IV PRN (01:06)
[2024-12-02 04:54] LABS: Basophils%(Percent) Auto 0.7 (0.0-1.3); Eosinophils#(Absolute)Auto 0.4 (0.0-0.3); Eosinophils%(Percent) Auto 9.2 % (0.0-4.0); Granulocytes % - Auto 56.3 % (49.1-73.1); Granulocytes#(Absolute)- Auto 2.4 (2.0-6.2); Monocytes #(Absolute)- Auto 0.5 (0.2-0.8); Monocytes %(Percent)- Auto 11.5 % (4.5-10.7); Platelet Count 113 K/uL (142-355); White Blood Count 4.2 K/uL (3.7-9.6)
[2024-12-02 05:02] LABS: Hematocrit 21.4 % (41.3-50.1)
[2024-12-02 05:14] LABS: Potassium 3.9 mmol/L (3.6-5.2)
[2024-12-02] MEDS: METHYLPREDNISOLONE SOD SUCC/PF 40 MG/ML VIAL INJ SCH (10:20)
[2024-12-02] MEDS: FUROSEMIDE 20 MG/2 ML VIAL IV ONE (12:06)
--- NOTE | 2024-12-02 12:16 | Progress Note ---
Progress Note: Subjective Subjective Interval history: Mr. Tovar is doing well this morning no significant changes. BUN and creatinine are still elevated. Hgb dropped to 7 this morning and he is scheduled to receive 1PRBC. He still remains on oxygen and will add steriods and attempt to ween him. Discussed with daughter and son; both agreeable to DNR and signed POLST form. Exam Constitutional: normal general appearance and no apparent distress Vital Signs - 24 hr 12/01/24 13:10 12/01/24 16:00 12/01/24 19:54 Temperature 98.8 F Pulse Rate Pulse Rate [Left B rachial] Pulse Rate [Right Radial] 60 Respiratory Rate 21 Blood Pressure Blood Pressure [Le ft Arm] Blood Pressure [Le ft Radial Artery] 91/54 Pulse Oximetry 95 98 91 L Oxygen Delivery Me thod Nasal Cannula Oxygen Flow Rate 1 Fraction of Inspir ed Oxygen 12/01/24 19:54 12/01/24 20:00 12/01/24 22:12 Temperature 99.2 F Pulse Rate 77 Pulse Rate [Left B rachial] 77 Pulse Rate [Right Radial] 77 Respiratory Rate 16 Blood Pressure 111/43 Blood Pressure [Le ft Arm] Blood Pressure [Le ft Radial Artery] 111/43 Pulse Oximetry 93 L 95 Oxygen Delivery Me thod Nasal Cannula Room Air Oxygen Flow Rate 2 Fraction of Inspir ed Oxygen 28 12/02/24 00:00 12/02/24 03:57 12/02/24 07:15 Temperature 98.7 F 98.7 F Pulse Rate Pulse Rate [Left B rachial] 76 72 Pulse Rate [Right Radial] 76 72 Respiratory Rate 17 15 Blood Pressure Blood Pressure [Le ft Arm] 109/54 100/48 Blood Pressure [Le ft Radial Artery] 109/54 100/48 Pulse Oximetry 97 97 95 Oxygen Delivery Me thod Nasal Cannula Room Air Oxygen Flow Rate Fraction of Inspir ed Oxygen 12/02/24 07:42 12/02/24 08:06 12/02/24 12:00 Temperature 97.7 F 97.6 F Pulse Rate 73 Pulse Rate [Left B rachial] Pulse Rate [Right Radial] 73 63 Respiratory Rate 20 19 Blood Pressure Blood Pressure [Le ft Arm] Blood Pressure [Le ft Radial Artery] 109/51 120/57 Pulse Oximetry 98 99 Oxygen Delivery Me thod Nasal Cannula Nasal Cannula Oxygen Flow Rate 2 2 Fraction of Inspir ed Oxygen 12/02/24 12:06 Temperature Pulse Rate Pulse Rate [Left B rachial] Pulse Rate [Right Radial] Respiratory Rate Blood Pressure 120/57 Blood Pressure [Le ft Arm] Blood Pressure [Le ft Radial Artery] Pulse Oximetry Oxygen Delivery Me thod Oxygen Flow Rate Fraction of Inspir ed Oxygen HENMT: normocephalic and head/scalp atraumatic dry mucus membranes Eyes: PERRL and conjunctivae normal Neck/C-Spine: visual inspection normal, trachea midline and supple Lymph: no lymphadenopathy noted Chest: inspection of chest normal Respiratory: no wheezes (Bilateral wheezing) bilateral wheezing Cardiovascular: normal heart rate noted, regular rhythm noted, no gallop, no rub, no murmur and no JVD Gastrointestinal: abdomen normal to inspection, abdomen soft to palpation, nontender to palpation, no masses and no ascites PEG tube present Genitourinary: no CVA tenderness Back/Pelvis: spine normal to inspection Extremities: Multiple decubitus ulcers, vascular ulcerations of the toes, bilateral Neurology: Alert and oriented 1, confused, lethargic Psychiatry: as above Skin: skin color normal Progress Note: Objective Labs Labs: CBC 12/02/24 Range/Units 04:20 WBC 4.2 (3.7-9.6) K/uL RBC 2.1 L (4.40-5.80) M/uL Hgb 7.0 L (14.0-17.4) gm/dL Hct 21.4 L* (41.3-50.1) % Plt Count 113 L (142-355) K/uL Gran % 56.3 (49.1-73.1) % Lymph % (Auto) 22.3 (17.6-39.05) % [place] % (Auto) 11.5 H (4.5-10.7) % Eos % (Auto) 9.2 H (0.0-4.0) % Baso % (Auto) 0.7 (0.0-1.3) Lymph # (Auto) 0.9 (0.8-2.9) [place] # (Auto) 0.5 (0.2-0.8) Eos # (Auto) 0.4 H (0.0-0.3) Baso # (Auto) 0.0 (0.0-0.1) Absolute Gran (auto) 2.4 (2.0-6.2) CMP 12/02/24 04:20 Sodium 143 Potassium 3.9 Chloride 110.0 H Carbon Dioxide 24 BUN 131 H* Creatinine 3.6 H Glucose 124 H Calcium 8.6 Liver Function 12/02/24 Range/Units 04:20 Total Bilirubin 0.19 (0.0-1.0) mg/dL AST 32 (15-37) U/L ALT 17 L (30-65) U/L Alkaline Phosphatase 126 (50-136) U/L Albumin 1.3 L (3.4-5.0) g/dL Urine 11/30/24 05:15 Urine Color Yellow Urine Appearance Clear Ur Specific [place] 1.010 Urine Protein 2+ Urine Glucose (UA) Normal Progress Note: A&P Assessment and Plan (1) Acute renal failure superimposed on stage 5 chronic kidney disease, not on chronic dialysis: Qualifiers: Acute renal failure type: unspecified Qualified Code(s): N17.9 - Acute kidney failure, unspecified; N18.5 - Chronic kidney disease, stage 5 (2) Pneumonia of right lower lobe due to infectious organism: (3) CHF (congestive heart failure), NYHA class III: (4) 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 ARF Admit [id number] D5 1/2NS @100ml/hr 1999 ADA diet Hold diuretics CBC CMP daily 2. PNA/COPD Levaquin 750mg IV now, then 500mg q48hrs Duoneb QID Pulmicort BID Add Solumedrol 40mg [id number] 3, 4.CAD ASA 81mg po daily Atorvastatin 40mg po HS Coreg 6.25mg po BID 5. Constipation Miralax 17gmp po daily Sennasides 8.6 po HS 6. Anemia Transfuse 1 PRBC Lasix 20mg IV after unit Fall Risk Details [place] Fall Scale Risk Level: High Fall Risk Current Medications: Current Medications Albuterol Sulfate (Ipratropium/Albuterol Sulfate 3 Ml Ampul.Neb) 3 ml INH RQ6 TINY Last Admin: 12/02/24 07:15 Dose: 3 ml Aspirin (Aspirin 81 Mg Tab.Chew) 81 mg PO DAILY [facility] Last Admin: 12/02/24 08:06 Dose: 81 mg Atorvastatin Calcium (Atorvastatin Calcium 40 Mg Tablet) 40 mg PEG DAILY [facility] Last Admin: 12/02/24 08:06 Dose: 40 mg Baclofen (Baclofen 10 Mg Tablet) 10 mg PO Q8H PRN PRN Reason: muscle spasm Budesonide (Budesonide 0.5 Mg/2 Ml Ampul.Neb) 1 mg INH RBID [facility] Last Admin: 12/02/24 07:15 Dose: 1 mg Carvedilol (Carvedilol 6.25 Mg Tablet) 6.25 mg PO BID [facility] Last Admin: 12/02/24 08:06 Dose: 6.25 mg Dextran/Hypromellose/Glycerin (Dextr/Hyprome/Glycer 0.1-0.2 15 Ml Bottle) 0 ml OPTH DAILY PRN PRN Reason: DRY EYES Fenofibrate (Fenofibrate 54 Mg Tablet) 54 mg PO BEDTIME [facility] Last Admin: 12/01/24 22:11 Dose: 54 mg Ferrous Sulfate (Ferrous Sulfate 325 Mg Tablet) 325 mg PO DAILY [facility] Last Admin: 12/02/24 08:06 Dose: 325 mg Dextrose/Sodium Chloride (Dextrose 5%-0.45% Nacl Iv Soln) 1,000 mls @ 75 mls/hr IV CONT [facility] Last Admin: 12/02/24 10:20 Dose: 75 mls/hr Levofloxacin/Dextrose (Levofloxacin/D5w 500 Mg/100 Ml) 500 mg in 100 mls @ 50 mls/hr IV Q48H TINY Acetaminophen (Acetaminophen 1000 Mg/100 Ml) 1,000 mg in 100 mls @ 400 mls/hr IV Q6H PRN PRN Reason: Pain Last Admin: 12/02/24 01:06 Dose: 400 mls/hr Latanoprost (Latanoprost 0.005% 2.5 Ml Drops) 1 drop OPTH DAILY [facility] Last Admin: 12/02/24 08:06 Dose: 1 drop Methylprednisolone Sodium Succinate (Methylprednisolone Sod Succ/Pf 40 Mg/Ml Vial) 40 mg INJ Q8H [facility] Last Admin: 12/02/24 10:20 Dose: 40 mg Mirtazapine (Mirtazapine 15 Mg Tablet) 7.5 mg PO BEDTIME [facility] Last Admin: 12/01/24 22:11 Dose: 7.5 mg Montelukast Sodium (Montelukast Sodium 10 Mg Tablet) 10 mg PO BEDTIME [facility] Last Admin: 12/01/24 22:15 Dose: 10 mg Multivitamins (Multivitamin Tablet) 1 each PEG DAILY [facility] Last Admin: 12/02/24 08:06 Dose: 1 each Docusate Sodium 50 (Mg/5 Ml Liquid) 100 mg PEG BID [facility] Last Admin: 12/02/24 08:07 Dose: Not Given Lansoprazole 30 Mg Capsule,Delayed Release(Dr/Ec) 30 mg PEG DAILY [facility] Last Admin: 12/02/24 08:07 Dose: Not Given Triamcinolone Acetonide [24 Hour Nasal Allergy] 55 Mcg 1 spray INH BID [facility] Last Admin: 12/02/24 08:07 Dose: Not Given Nystatin (Nystatin 15 Gm Powder) 0 gm TOPICAL DAILY PRN PRN Reason: YEAST Ondansetron HCl (Ondansetron Hcl/Pf 4 Mg/2 Ml Vial) 4 mg INJ Q6H PRN PRN Reason: Nausea And Vomiting Ondansetron HCl (Ondansetron Hcl 4 Mg Tablet) 4 mg PO Q8H PRN PRN Reason: nausea and vomiting Oxycodone HCl (Oxycodone Hcl 5 Mg Tablet) 5 mg PO Q4H PRN PRN Reason: pain Last Admin: 12/02/24 08:05 Dose: 5 mg Pregabalin (Pregabalin 25 Mg Capsule) 50 mg PO DAILY [facility] Last Admin: 12/02/24 08:06 Dose: 50 mg Senna (Sennosides 8.6 Mg Tablet) 8.6 mg PO BEDTIME [facility] Last Admin: 12/01/24 22:11 Dose: 8.6 mg Tamsulosin HCl (Tamsulosin Hcl 0.4 Mg Capsule) 0.4 mg PO BID [facility] Last Admin: 12/02/24 08:06 Dose: 0.4 mg Time Spent With Patient Time: Total time spent is greater than 50% in coordination of care (as documented) at patient's floor/unit and/or counseling patient: Time with patient: 25 - 35 minutes
[2024-12-03 06:08] LABS: Potassium 4.3 mmol/L (3.6-5.2)
[2024-12-03 06:46] LABS: Hematocrit 28.7 % (41.3-50.1); White Blood Count 3.2 K/uL (3.7-9.6)
[2024-12-03 06:47] LABS: Basophils%(Percent) Auto 0.2 (0.0-1.3); Eosinophils%(Percent) Auto 0.1 % (0.0-4.0); Granulocytes % - Auto 82.7 % (49.1-73.1); Granulocytes#(Absolute)- Auto 2.7 (2.0-6.2); Monocytes #(Absolute)- Auto 0.1 (0.2-0.8); Monocytes %(Percent)- Auto 3.1 % (4.5-10.7); Platelet Count 107 K/uL (142-355)
[2024-12-03 08:42] VITALS: BP 93/54; PULSE 50; RESP 19; TEMP 97.4
--- NOTE | 2024-12-03 09:21 | Discharge Summary ---
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 Tovar was admitted on 11/30/24 from the ED with initial complaint of AMS. CT head was negative, CBC negative, and UA. CXR did show opacity that has been ongoing since September; prior films were clear. Patient was started on renal dosing levaquin. Creatinine and BUN were elevated from his baseline and he did undergo IVF hydration without significant improvement. He does have chronic anemia while Hgb did drop to 7 and he was transfused 1 PRBC with final HgB of 9.9. Code status was once again clarified with daughter and son; he is to be DNR and POLST form was signed. Patient was discharged on 12/03/24 to follow up with PCP and complete OP course of abx, pulmicort added to respiratory regimen. Status at Discharge Functional status at discharge: bed bound Overall status at discharge: patient is back to baseline Time Spent with Patient Time attestation: Total time spent providing and/or coordinating discharge services: 35 Exam Constitutional: normal general appearance and no apparent distress Vital Signs - 24 hr 12/02/24 12:00 12/02/24 12:06 12/02/24 12:35 Temperature 97.6 F Pulse Rate Pulse Rate [Left B rachial] Pulse Rate [Right Radial] 63 Respiratory Rate 19 Blood Pressure 120/57 122/56 Blood Pressure [Le ft Arm] Blood Pressure [Le ft Radial Artery] 120/57 Pulse Oximetry 99 Oxygen Delivery Me thod Nasal Cannula Oxygen Flow Rate 2 Fraction of Inspir ed Oxygen 12/02/24 14:04 12/02/24 16:00 12/02/24 19:35 Temperature 98.1 F 97.7 F Pulse Rate Pulse Rate [Left B rachial] 69 Pulse Rate [Right Radial] 60 69 Respiratory Rate 19 17 Blood Pressure Blood Pressure [Le ft Arm] 103/48 Blood Pressure [Le ft Radial Artery] 132/63 103/48 Pulse Oximetry 93 L 97 96 Oxygen Delivery Me thod Nasal Cannula Nasal Cannula Oxygen Flow Rate 2 Fraction of Inspir ed Oxygen 12/02/24 19:50 12/02/24 20:29 12/03/24 00:00 Temperature 96.4 F L Pulse Rate 69 Pulse Rate [Left B rachial] 55 L Pulse Rate [Right Radial] 55 L Respiratory Rate 16 Blood Pressure 103/48 Blood Pressure [Le ft Arm] 125/54 Blood Pressure [Le ft Radial Artery] 125/54 Pulse Oximetry 98 96 Oxygen Delivery Me thod Nasal Cannula Oxygen Flow Rate Fraction of Inspir ed Oxygen 12/03/24 00:10 12/03/24 02:04 12/03/24 03:55 Temperature 95.9 F L Pulse Rate Pulse Rate [Left B rachial] 51 L Pulse Rate [Right Radial] 51 L Respiratory Rate 18 Blood Pressure Blood Pressure [Le ft Arm] 132/56 Blood Pressure [Le ft Radial Artery] 132/56 Pulse Oximetry 98 98 97 Oxygen Delivery Me thod Nasal Cannula Nasal Cannula Oxygen Flow Rate 1.5 Fraction of Inspir ed Oxygen 30 12/03/24 07:46 12/03/24 08:00 Temperature 97.4 F L Pulse Rate Pulse Rate [Left B rachial] Pulse Rate [Right Radial] 50 L Respiratory Rate 19 Blood Pressure Blood Pressure [Le ft Arm] 93/54 Blood Pressure [Le ft Radial Artery] Pulse Oximetry 95 100 Oxygen Delivery Me thod Nasal Cannula Oxygen Flow Rate 2 Fraction of Inspir ed Oxygen HENMT: normocephalic and head/scalp atraumatic dry mucus membranes Eyes: PERRL and conjunctivae normal Neck/C-Spine: visual inspection normal, trachea midline and supple Lymph: no lymphadenopathy noted Chest: inspection of chest normal Respiratory: breath sounds equal bilaterally, normal respiratory effort, clear to auscultation bilaterally and no wheezes bilateral wheezing Cardiovascular: normal heart rate noted, regular rhythm noted, no gallop, no rub, no murmur and no JVD Gastrointestinal: abdomen normal to inspection, abdomen soft to palpation, nontender to palpation, no masses and no ascites PEG tube present Genitourinary: no CVA tenderness Back/Pelvis: spine normal to inspection Extremities: Multiple decubitus ulcers, vascular ulcerations of the toes, bilateral Neurology: Alert and oriented 1, confused, lethargic Psychiatry: as above Skin: skin color normal DS: Data Data Completed and Pending Labs on day of discharge: Labs from last 24 hours 12/03/24 12/02/24 12/02/24 05:00 13:45 07:00 WBC 3.2 L RBC 2.9 L Hgb 9.9 L Hct 28.7 L MCV 98.0 H MCH 33.9 H MCHC 34.6 RDW 15.3 H Plt Count 107 L MPV 10.1 Gran % 82.7 H Lymph % (Auto) 13.9 L [place] % (Auto) 3.1 L Eos % (Auto) 0.1 Baso % (Auto) 0.2 Lymph # (Auto) 0.4 L [place] # (Auto) 0.1 L Eos # (Auto) 0.0 Baso # (Auto) 0.0 Absolute Gran (auto) 2.7 Sodium 140 Potassium 4.3 Chloride 106.0 Carbon Dioxide 25 Anion Gap 9.0 BUN 123 H* Creatinine 3.4 H Estimated GFR 17.6 Glucose 233 H Calcium 8.9 Stl Occ Bld (IFOB) Scr Negative Blood Type A Positive Antibody Screen Negative Crossmatch (AHG) See Detail Preliminary micro results at discharge 12/01/24 09:40 Blood Culture - Preliminary Blood - Venous Draw (Peripheral) Discharge Plan Discharge Disposition: [facility] Condition: Improved Discharge Medications: New budesonide 0.5 mg/2 mL Suspension For Nebulization 1 mg inhalation RBID Qty: 60 0RF levofloxacin 500 mg Tablet 500 mg PO Q48H Qty: 4 0RF Continued latanoprost 0.005 % drops 1 drp OPHTHALMIC (EYE) DAILY acetaminophen 325 mg tablet 650 mg PO Q6H PRN (Reason: fever or pain) ascorbic acid (vitamin C) 500 mg tablet 500 mg PO DAILY aspirin 81 mg tablet,chewable 81 mg PO DAILY baclofen 10 mg tablet 10 mg PO Q8H PRN (Reason: muscle spasm) diphenhydramine HCl [Hwlfd-[id number]-Dxxp] 25 mg tablet 50 mg PO Q8H PRN (Reason: itching) docusate sodium 50 mg/5 mL liquid 100 mg feeding tube BID pregabalin 50 mg capsule 50 mg feeding tube DAILY polyethylene glycol 3350 [Miralax] 17 gram powder in packet 17 g PO BID PRN (Reason: constipation) mirtazapine 15 mg tablet 7.5 mg feeding tube BEDTIME multivitamin Tablet 1 tab feeding tube DAILY triamcinolone acetonide [24 Hour Nasal Allergy] 55 mcg aerosol,spray 1 spray intranasal BID Rx Instructions: administer into each nostril Advanced Eye Relief 1-0.3 % drops 1 drp ophthalmic (eye) DAILY PRN (Reason: dry eye(s)) sennosides [senna] 8.6 mg tablet 8.6 mg PO BEDTIME ondansetron HCl 4 mg tablet 4 mg feeding tube Q8H PRN (Reason: nausea and vomiting) bumetanide 2 mg tablet 2 mg PO DAILY Qty: 30 0RF Rx Instructions: daily weights atorvastatin 40 mg tablet 40 mg feeding tube DAILY lansoprazole 30 mg capsule,delayed release(DR/EC) 30 mg feeding tube DAILY fenofibrate 54 mg tablet 54 mg feeding tube BEDTIME tamsulosin 0.4 mg capsule 0.4 mg PO BID Rx Instructions: G-TUBE furosemide 40 mg tablet 40 mg feeding tube DAILY carvedilol 6.25 mg tablet 6.25 mg feeding tube BID montelukast 10 mg tablet 10 mg feeding tube BEDTIME oxycodone 5 mg tablet 5 mg feeding tube Q4H PRN (Reason: pain) ipratropium-albuterol 0.5 mg-3 mg(2.5 mg base)/3 mL solution for nebulization 3 ml inhalation Q6H nystatin [Nystop] 100,000 unit/gram powder 1 applic TOPICAL DAILY PRN (Reason: YEAST) Rx Instructions: APPLY TO PERINEAL AREA PRN FOR YEAST UNTIL HEALED OR RESOLVED ferrous sulfate 325 mg (65 mg iron) tablet 325 mg PO DAILY Discharge Orders: Discharge Order (Routine); Ordered 12/03/24 Ordered By: Jeffrey Fu Activity: resume usual activities as tolerated Diet Detail: Resume Previous Diet Hospital Course: Mr. Tovar was admitted on 11/30/24 from the ED with initial complaint of AMS. CT head was negative, CBC negative, and UA. CXR did show opacity that has been ongoing since September; prior films were clear. Patient was started on renal dosing levaquin. Creatinine and BUN were elevated from his baseline and he did undergo IVF hydration without significant improvement. He does have chronic anemia while Hgb did drop to 7 and he was transfused 1 PRBC with final HgB of 9.9. Code status was once again clarified with daughter and son; he is to be DNR and POLST form was signed. Patient was discharged on 12/03/24 to follow up with PCP and complete OP course of abx, pulmicort added to respiratory regimen. Interventions: Discharge Assessment Last Done: 12/03/24 10:01 MED/SURG & ICU Observation Charge Sheet Last Done: 12/03/24 11:06 Print Language: Occitan Follow-Ups: Jane Ritchie DO [Primary Care Provider] - Discharge Date/Time: 12/03/24 11:07
[2024-12-03] MEDS: levoFLOXacin 500 MG TABLET PO SCH (10:30)
[2024-12-03] MEDS ORDERED: LEVOFLOXACIN/D5W 500 MG/100 ML 500 MG/100 ML PIGGYBACK IV SCH (11:00)
== END 2024-12-03 11:07 ==
LOC: ED 02:28 → MS 02:28
PROVIDERS: ADMIT Nurse Practitioner Family; ATTEND Nurse Practitioner Family
DX: I25.10 Atherosclerotic heart disease of native coronary artery without angina pectoris; N17.9 Acute kidney failure, unspecified; E44.0 Moderate protein-calorie malnutrition; J18.9 Pneumonia, unspecified organism; I13.2 Hypertensive heart and chronic kidney disease with heart failure and with stage 5 chronic kidney disease, or end stage renal disease; I50.9 Heart failure, unspecified; N40.0 Benign prostatic hyperplasia without lower urinary tract symptoms; Z68.30 Body mass index [BMI] 30.0-30.9, adult; Z87.440 Personal history of urinary (tract) infections; E11.22 Type 2 diabetes mellitus with diabetic chronic kidney disease; R41.82 Altered mental status, unspecified; E86.0 Dehydration; E11.51 Type 2 diabetes mellitus with diabetic peripheral angiopathy without gangrene; Z87.01 Personal history of pneumonia (recurrent); J44.0 Chronic obstructive pulmonary disease with (acute) lower respiratory infection; D63.1 Anemia in chronic kidney disease; N25.81 Secondary hyperparathyroidism of renal origin; N18.5 Chronic kidney disease, stage 5; Z86.73 Personal history of transient ischemic attack (TIA), and cerebral infarction without residual deficits; Z66 Do not resuscitate; Z88.5 Allergy status to narcotic agent; E87.8 Other disorders of electrolyte and fluid balance, not elsewhere classified; R90.82 White matter disease, unspecified; I44.0 Atrioventricular block, first degree; Z88.8 Allergy status to other drugs, medicaments and biological substances; Z79.82 Long term (current) use of aspirin; K59.00 Constipation, unspecified; Z79.899 Other long term (current) drug therapy; Z88.1 Allergy status to other antibiotic agents; E87.1 Hypo-osmolality and hyponatremia

== ENCOUNTER 2024-12-06 11:22 | Inpatient (IN) ==
[2024-12-06] MEDS ORDERED: 0.9 % SODIUM CHLORIDE 1000 ML 1,000 ML IV ONE (12:03)
[2024-12-06] MEDS ORDERED: 0.9 % SODIUM CHLORIDE 250 ML IV ONE (12:03)
[2024-12-06] MEDS ORDERED: VANCOMYCIN HCL 1,000 MG VIAL IV ONE (12:03)
[2024-12-06] MEDS ORDERED: MORPHINE SULFATE 2 MG/ML CARTRIDGE IV ONE ×2 (12:04→12:45)
[2024-12-06] MEDS: MORPHINE SULFATE 2 MG/ML CARTRIDGE IV ONE ×2 (12:13→12:50)
[2024-12-06] MEDS: 0.9 % SODIUM CHLORIDE 1000 ML 1,000 ML IV SCH ×2 (12:14→20:48)
[2024-12-06] MEDS: VANCOMYCIN HCL 1 MG in 0.9 % SODIUM CHLORIDE 250 ML IV SCH (12:15)
[2024-12-06 12:22] LABS: Basophils%(Percent) Auto 0.1 (0.0-1.3); Eosinophils#(Absolute)Auto 0.1 (0.0-0.3); Eosinophils%(Percent) Auto 1.3 % (0.0-4.0); Granulocytes % - Auto 77.4 % (49.1-73.1); Granulocytes#(Absolute)- Auto 7.4 (2.0-6.2); Hematocrit 29.7 % (41.3-50.1); Mean Corpuscular Volume 98.1 fl (81.9-96.5); Monocytes #(Absolute)- Auto 0.9 (0.2-0.8); Platelet Count 147 K/uL (142-355); White Blood Count 9.5 K/uL (3.7-9.6)
[2024-12-06 12:35] LABS: Specific Gravity Urine 1.025 (1.001-1.035); Urine Appearance CLEAR (CLEAR); Urine Blood TRACE (NEG - TRACE); Urine Color YELLOW (STRAW/YELL.); Urine Urobilinogen Normal (NORMAL)
[2024-12-06 12:36] LABS: Urine Amorphous Sediment Few (Negative); Urine Yeast Negative (Negative)
[2024-12-06 12:51] LABS: Potassium 4.5 mmol/L (3.6-5.2)
[2024-12-06] MEDS: [UNRECOGNIZED DRUG - OTHER] IV STA (13:16)
[2024-12-06] MEDS: VANCOMYCIN HCL 1,000 MG in 0.9 % SODIUM CHLORIDE 250 ML IV SCH (15:18)
[2024-12-06] MEDS ORDERED: GLYCERIN OPTH PRN (20:13)
[2024-12-06] MEDS ORDERED: ONDANSETRON HCL/PF 4 MG/2 ML VIAL INJ PRN (20:13)
[2024-12-06] MEDS ORDERED: OXYCODONE HCL 5 MG TABLET PO PRN (20:13)
[2024-12-06] MEDS ORDERED: ACETAMINOPHEN 325 MG TABLET PO PRN ×2 (20:13→20:25)
[2024-12-06] MEDS ORDERED: NYSTATIN 15 GM POWDER TOPICAL PRN (20:13)
[2024-12-06] MEDS ORDERED: BACLOFEN 10 MG TABLET PO PRN (20:13)
[2024-12-06] MEDS ORDERED: PROPYLENE GLYCOL OPTH PRN (20:13)
[2024-12-06] MEDS ORDERED: polyethylene glycoL 3350 17 GM POWD.PACK PO PRN (20:13)
[2024-12-06] MEDS ORDERED: diphenhydrAMINE HCL 25 MG CAP PO PRN (20:34)
[2024-12-06] MEDS ORDERED: BUDESONIDE 0.5 MG/2 ML AMPUL.NEB INH ONE (20:41)
[2024-12-06] MEDS ORDERED: IPRATROPIUM/ALBUTEROL SULFATE 3 ML AMPUL.NEB INH ONE (20:41)
[2024-12-06] MEDS: MONTELUKAST SODIUM 10 MG TABLET PO SCH (20:48)
[2024-12-06] MEDS: FENOFIBRATE 54 MG TABLET PO SCH (20:48)
[2024-12-06] MEDS: TAMSULOSIN HCL 0.4 MG CAPSULE PO SCH (20:48)
[2024-12-06] MEDS: MIRTAZAPINE 15 MG TABLET PO SCH (20:48)
[2024-12-06] MEDS: SENNOSIDES 8.6 MG TABLET PO SCH (20:48)
[2024-12-06] MEDS: DOCUSATE PO SCH (20:49)
[2024-12-06] MEDS: TRIAMCINOLONE ACETONIDE 55 MCG MISC SCH (20:49)
[2024-12-06] MEDS: IPRATROPIUM/ALBUTEROL SULFATE 3 ML AMPUL.NEB INH SCH (20:55)
[2024-12-06] MEDS: BUDESONIDE 0.5 MG/2 ML AMPUL.NEB INH SCH (20:55)
[2024-12-06] MEDS: carvediloL 6.25 MG TABLET PO SCH (21:10)
[2024-12-06] MEDS ORDERED: levoFLOXacin 500 MG TABLET PO SCH (22:00)
[2024-12-07] MEDS: MORPHINE SULFATE 4 MG/ML CARTRIDGE IV PRN (04:34)
[2024-12-07 05:05] LABS: Basophils%(Percent) Auto 0.1 (0.0-1.3); Eosinophils#(Absolute)Auto 0.2 (0.0-0.3); Eosinophils%(Percent) Auto 2.7 % (0.0-4.0); Granulocytes#(Absolute)- Auto 7.1 (2.0-6.2); Hematocrit 26.9 % (41.3-50.1); Mean Corpuscular Volume 99.2 fl (81.9-96.5); Monocytes #(Absolute)- Auto 0.7 (0.2-0.8); Monocytes %(Percent)- Auto 7.9 % (4.5-10.7); Platelet Count 134 K/uL (142-355); White Blood Count 9.3 K/uL (3.7-9.6)
[2024-12-07 05:07] LABS: Potassium 4.2 mmol/L (3.6-5.2)
--- NOTE | 2024-12-07 07:33 | Emergency Department Note ---
HPI - General Adult General Chief complaint: General Complaint Stated complaint: UNCONTROLLED PAIN Time Seen by Provider: 12/06/24 12:24 Source: other Source information: JR De Oliveira Mode of arrival: on bed History of Present Illness HPI narrative: 79 yo male [facility] an [facility], and "moaning as if he is in acute pain." Patient has been reported to being treated currently for PNA by Dr. Ritchie. Patient is also reported to have a large sacral wound that is also currently being treated. Patient responds to provider with simple one or two word answers only, then quickly begins to moan again. Related Data Home Medications Medication Instructions Recorded Confirmed atorvastatin 40 mg tablet 40 mg feeding tube DAILY 01/29/24 11/30/24 carvedilol 6.25 mg tablet 6.25 mg feeding tube BID 01/29/24 11/30/24 fenofibrate 54 mg tablet 54 mg feeding tube BEDTIME 01/29/24 11/30/24 furosemide 40 mg tablet 40 mg feeding tube DAILY 01/29/24 11/30/24 ipratropium 0.5 mg-albuterol 3 mg 3 ml inhalation Q6H 01/29/24 11/30/24 (2.5 mg base)/3 mL nebulization soln lansoprazole 30 mg capsule,delayed 30 mg feeding tube DAILY 01/29/24 11/30/24 release montelukast 10 mg tablet 10 mg feeding tube BEDTIME 01/29/24 11/30/24 nystatin 100,000 unit/gram topical 1 applic topical DAILY PRN YEAST 01/29/24 11/30/24 powder (Nystop) oxycodone 5 mg tablet 5 mg feeding tube Q4H PRN pain 01/29/24 11/30/24 tamsulosin 0.4 mg capsule 0.4 mg PO BID 01/29/24 11/30/24 latanoprost 0.005 % eye drops 1 drp ophthalmic (eye) DAILY 06/21/24 11/30/24 acetaminophen 325 mg tablet 650 mg PO Q6H PRN fever or pain 10/30/24 11/30/24 ascorbic acid (vitamin C) 500 mg 500 mg PO DAILY 10/30/24 11/30/24 tablet aspirin 81 mg chewable tablet 81 mg PO DAILY 10/30/24 11/30/24 baclofen 10 mg tablet 10 mg PO Q8H PRN muscle spasm 10/30/24 11/30/24 diphenhydramine HCl 25 mg tablet 50 mg PO Q8H PRN itching 10/30/24 11/30/24 (Rvxoa-W-Dhib) docusate sodium 50 mg/5 mL oral 100 mg feeding tube BID 10/30/24 11/30/24 liquid mirtazapine 15 mg tablet 7.5 mg feeding tube BEDTIME 10/30/24 11/30/24 multivitamin 1 tab feeding tube DAILY 10/30/24 11/30/24 ondansetron HCl 4 mg tablet 4 mg feeding tube Q8H PRN nausea 10/30/24 11/30/24 and vomiting polyethylene glycol 3350 17 gram 17 g PO BID PRN constipation 10/30/24 11/30/24 oral powder packet (Miralax) pregabalin 50 mg capsule 50 mg feeding tube DAILY 10/30/24 11/30/24 propylene glycol 1 %-glycerin 0.3 1 drp ophthalmic (eye) DAILY PRN 10/30/24 11/30/24 % eye drops (Advanced Eye Relief) dry eye(s) sennosides 8.6 mg tablet (senna) 8.6 mg PO BEDTIME 10/30/24 11/30/24 triamcinolone acetonide 55 mcg 1 spray intranasal BID 10/30/24 11/30/24 nasal spray aerosol (24 Hour Nasal Allergy) ferrous sulfate 325 mg (65 mg 325 mg PO DAILY 11/30/24 11/30/24 iron) tablet Previous Rx's Medication Instructions Recorded bumetanide 2 mg tablet 2 mg PO DAILY chf #30 tabs 11/03/24 budesonide 0.5 mg/2 mL suspension 1 mg (4 mL) inhalation RBID #60 mL 12/03/24 for nebulization levofloxacin 500 mg tablet 500 mg PO Q48H PNEUMONIA #4 tabs 12/03/24 Allergies Allergy/AdvReac Type Severity Reaction Status Date / Time cefdinir Allergy Mild Verified 12/06/24 11:33 codeine Allergy Mild Verified 12/06/24 11:33 primidone Allergy Mild Verified 12/06/24 11:33 Review of Systems Status of ROS 10 or more systems reviewed and unremark able except as noted in history and below Constitutional Reports: fever, chills and change in weight Respiratory Reports: cough and chest congestion Integumentary/Breast Reports: sores PFSH PFSH Medical History Constipation CHF (congestive heart failure), NYHA class III End of life care Acute renal failure superimposed on stage 5 chronic kidney disease, not on chronic dialysis Moderate protein malnutrition Pruritic dermatitis Cognitive communication deficit BPH (benign prostatic hyperplasia) Secondary hyperparathyroidism (of renal origin) Chronic kidney disease, stage 4 (severe) Acute kidney failure Osteoarthritis Gout Cellulitis of groin GERD (gastroesophageal reflux disease) Peripheral vascular disease Heart failure Atherosclerotic heart disease Hypertension Glaucoma Toxic encephalopathy Sleep apnea Adrenocortical insufficiency Diabetes mellitus Anemia Urinary retention Vascular dementia of 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 behavioral disturbance Generalized edema Acute nephrotic syndrome ARF (acute respiratory failure) Melioidosis Difficulty in walking Dysphagia Acute cystitis without hematuria COPD (chronic obstructive pulmonary disease) CHF (congestive heart failure) Social History Smoking status: never smoker Problems where you live: no known problems Highest level of school completed/degree received: high school Feel stressed/tense/nervous/anxious/difficulty sleeping: not at all Life stressor details: n/a Due to disability, difficulty making decisions: No Exam Exam: 79yo male presents via SN[facility] bed with incr easing "moaning, and fever" per staff. I have spoken with family members that state patient has dementia, however, the moaning is new and they are unsure if he is in pain or it is just a verbal r esponse. Patient is maintaining proper vital signs at this time, however, he is noted to have a fever of 102 in the ED. No acute respiratory distress or failure is noted. Patient has oxygen saturations in the mid to upper 90s on 2L of NC, which he is reported to currently wear at the SNF. Constitutional: no apparent distress and alert Vital Signs - 24 hr 12/06/24 11:25 Temperature 102.2 F H Pulse Rate 82 Respiratory Rate 24 Blood Pressure 105/43 Pulse Oximetry 97 Oxygen Delivery Me thod Nasal Cannula Oxygen Flow Rate 2 answers simple questions. HENMT: patient is hard of hearing. Eyes: EOMs intact bilaterally Neck/C-Spine: visual inspection normal Lymph: no lymphadenopathy noted Chest: inspection of chest normal Respiratory: Patient has congested breath sounds thorough out with the right sided being greatly reduced with nearly inaudible sounds on the right. Patient also has a rattle in the upper airway with deep inspirations, and a cough with every 3rd or 4th expiration. Cardiovascular: normal heart rate noted Extremities: currently has heel protection boots in place Skin: Patient is reported to have a very large, painful, sacral wound per his PCP that is currently quickly advancing into his hip bone structures. Course Course Hospital Course: Heplock EKG Labs IV medications IV fluids Consult with hospitalist and PCP Reevaluation(s) Reevaluation #1: I have spoken at length with the patient's PCP and family members about the patient's plan of medical care. I have diligently explained to Mr. Tovar's daughter that he has a progressing pneumonia, and a large sacral wound that he will likely not recover from, along with a current fever, and some worsening kidney functions. I have also instructed the family I will abide by any health care wishes they would like me to undertake, such as transfer to a Tertiary center which has nephrology and wound care specialties, after speaking with Dr. Ritchie she has agreed to allow the patient to be admitted to [facility] if the family wishes to make the patient comfort care measures only. Time: 13:30 Reevaluation #2: After multiple conversations between myself, Dr. Ritchie, and family the decision was made the patient will now be made a DNR with the instructions he is to continue to receive fluids and antibiotics, and all comfort care measures. Family has signed all forms Conveying these wishes Vital Signs Vital signs: Vital Signs Temperature 102.2 F H 12/06/24 11:25 Pulse Rate 82 12/06/24 11:25 Respiratory Rate 24 12/06/24 11:25 Blood Pressure 105/43 12/06/24 11:25 Pulse Oximetry 97 12/06/24 11:25 Oxygen Delivery Method Nasal Cannula 12/06/24 11:25 Oxygen Flow Rate 2 12/06/24 11:25 Temperature 102.2 F H 12/06/24 11:25 Pulse Rate 82 12/06/24 11:25 Respiratory Rate 24 12/06/24 11:25 Blood Pressure 105/43 12/06/24 11:25 Pulse Oximetry 97 12/06/24 11:25 Oxygen Delivery Method Nasal Cannula 04/26/25 11:25 Oxygen Flow Rate 2 12/06/24 11:25 Medical Decision Making MDM Narrative Medical decision making narrative: PNA respiratory failure respiratory distress Cardiac failure sacral wound After completing lab work patient has a slight worsening of his BUN and renal function, however does not have a white count at this time. I discussed all findings with Dr. Ritchie and family. I have also instructed daughter patient's chest x-ray appears to have a large pneumonia on the right side. Differential Diagnosis Differential Diagnosis: PNA, CHF, SD, Dementia, Acute pain, Sepsis, Medical Records Medical records reviewed: Yes I reviewed the patient's medical records Lab Data Lab results reviewed: Yes I reviewed the patient's lab results Labs: Lab Results 12/06/24 12/06/24 Range/Units 11:20 11:52 WBC 9.5 (3.7-9.6) K/uL RBC 3.0 L (4.40-5.80) M/uL Hgb 10.0 L (14.0-17.4) gm/dL Hct 29.7 L (41.3-50.1) % MCV 98.1 H (81.9-96.5) fl MCH 33.0 (27.6-33.7) pg MCHC 33.7 (33.0-35.7) g/dl RDW 16.3 H (11.0-14.8) % Plt Count 147 (142-355) K/uL MPV 10.5 H (6.0-10.4) fl Gran % 77.4 H (49.1-73.1) % Lymph % (Auto) 12.2 L (17.6-39.05) % [place] % (Auto) 9.0 (4.5-10.7) % Eos % (Auto) 1.3 (0.0-4.0) % Baso % (Auto) 0.1 (0.0-1.3) Lymph # (Auto) 1.2 (0.8-2.9) [place] # (Auto) 0.9 H (0.2-0.8) Eos # (Auto) 0.1 (0.0-0.3) Baso # (Auto) 0.0 (0.0-0.1) Absolute Gran (auto) 7.4 H (2.0-6.2) Sodium 143 (136-145) mmol/L Potassium 4.5 (3.6-5.2) mmol/L Chloride 110.0 H (98-107) mmol/L Carbon Dioxide 23 (21-32) mmol/L Anion Gap 10.0 (4-14) mEq/L BUN 133 H* (7-18) mg/dL Creatinine 3.4 H (0.6-1.3) mg/dL Estimated GFR 17.6 (>59.9) Glucose 104 (70-110) mg/dL Lactic Acid 0.8 (0.27-1.43) mmol/L Calcium 8.6 (8.5-10.1) mg/dL Phosphorus 3.1 (2.5-4.9) mg/dL Magnesium 2.3 (1.8-2.4) mg/dL Total Bilirubin 0.35 (0.0-1.0) mg/dL AST 43 H (15-37) U/L ALT 30 (30-65) U/L Alkaline Phosphatase 133 (50-136) U/L Total Protein 5.5 L (6.4-8.2) g/dL Albumin 1.7 L (3.4-5.0) g/dL Urine Color Yellow (STRAW/YELL.) Urine Appearance Clear (CLEAR) Ur Specific Scott 1.025 (1.001-1.035) Urine Protein Trace (NEGATIVE) Urine Glucose (UA) Normal (NORMAL) Urine Ketones Negative (NEGATIVE) Urine Occult Blood Trace (NEG - TRACE) Urine Nitrite Negative (NEGATIVE) Urine Bilirubin Negative (NEGATIVE) Urine Urobilinogen Normal (NORMAL) Ur Leukocyte Esterase Negative (NEGATIVE) Urine RBC 5 - 10 (0 - 5) Urine WBC 2 - 5 ( 0 - 5) Ur Epithelial Cells Few (Few/HPF) Amorphous Sediment Few (Negative) Urine Bacteria Negative (Negative) Urine Mucus Negative (Negative) Urine Trichomonas Negative (Negative) Urine Yeast Negative (Negative) Fluid pH 5.0 (5 - 9) COVID-19 (ASHKAN) Not detected (Not Detectd) Influenza Type A Ag Negative (Negative) Influenza Type B Ag Negative (Negative) Respiratory Virus Ag Negative (Negative) Imaging Data Chest x-ray: Attestation: I personally reviewed and interpreted this imaging study as follows: My impression: Large infilitrates on the right side, with PNA suspected ECG Data Attestation: I personally reviewed and interpreted this ECG as follows: Prior ECG tracings: not available for review Interpretation: EKG timed at 1145 shows sinus rhythm with a rate of 82 OK interval 198 QRSD 79 QT of 357 multiple ventricular premature complexes no acute ST elevation or inversion Critical Care Time Critical Care Time Critical Care Time: Yes Total Critical Care Time: 9 Attestation: i have spoken with family and PCP multiple times as well as administered IV fluids and iv antibiotics to patient. Discharge Plan Discharge Patient Disposition: Admitted As Observation Condition: Stable Clinical Impression: Altered mental status, Chronic pain, End of life care, Pneumonia of right lower lobe due to infectious organism, Sacral wound Time of Disposition: 18:22
[2024-12-07] MEDS: ACETAMINOPHEN 1000 MG/100 ML 1,000 MG/100 ML IV.SOLN IV PRN (08:56)
[2024-12-07] MEDS: ATORVASTATIN CALCIUM 40 MG TABLET PEG SCH (09:00)
[2024-12-07] MEDS: MULTIVITAMIN TABLET PEG SCH (09:00)
[2024-12-07] MEDS: PANTOPRAZOLE SODIUM 40 MG TABLET.DR PO SCH (09:00)
[2024-12-07] MEDS: PREGABALIN 25 MG CAPSULE PO SCH (09:01)
[2024-12-07] MEDS: FERROUS SULFATE 325 MG TABLET PO SCH (09:02)
[2024-12-07] MEDS: ASCORBIC ACID 500 MG TABLET PO SCH (09:02)
[2024-12-07] MEDS: ASPIRIN 81 MG TAB.CHEW PO SCH (09:02)
[2024-12-07] MEDS: LATANOPROST 0.005% OPTH SCH (09:03)
[2024-12-07] MEDS: BUMETANIDE 1 MG TABLET PO SCH (09:08)
[2024-12-07] MEDS: FUROSEMIDE 40 MG TABLET PEG SCH (09:09)
--- NOTE | 2024-12-07 13:17 | History & Physical Report ---
H&P: HPI History of Present Illness Chief complaint: UNCONTROLLED PAIN Narrative: 79 [facility] an [facility], and "moaning as if he is in acute pain and worsens with turning or changing the patient." Patient has been reported to being treated currently for PNA by Dr. Ritchie. with PO antibiotic levaquin and was discharged from the hospital on 12/03/2024 for dx of UTI and Pneumonia. Patient is also reported to have a large sacral wound that is also currently being treated. Patient responds to provider with simple one or two word answers only, then quickly begins to moan again. Moaning improved in the ER with Morphine and medications. I have spoken with family members daughter and son that state patient has dementia, however, the moaning is new and they are unsure if he is in pain or it is just a verbal response. Patient is maintaining proper vital signs at this time, however, he is noted to have a fever of 102 in the ED. No acute respiratory distress or failure is noted. Patient has oxygen saturations in the mid to upper 90s on 2L of [place], which he is reported to currently wear at the [facility] and sats normally higher on the 2 liters. Discssed transfer with the children and they decline and they only want the IV antibiotics and pain control and no aggressive care. Review of Systems 2 Status of ROS 10 or more systems reviewed and unremark able except as noted in history and below Constitutional Reports: fever, chills, change in weight, fatigue, malaise and change in sleep pattern; Denies: night sweats Eyes Denies: change in vision, blurry vision, blind spots, light sensitivity or eye discomfort Ears, nose, mouth, and throat Reports: neck pain, difficulty swallowing and dry mouth; Denies: throat pain, throat swelling, hoarseness, mouth pain, swelling of lips/tongue, bad breath or ear discharge Cardiovascular Reports: swelling of feet/ankles and shortness of breath when lying down; Denies: chest pain, palpitations, edema, lightheadedness, shortness of breath with exertion or bluish discoloration of hands/feet Respiratory Reports: shortness of breath, cough, wheezing and chest congestion; Denies: stridor, pain on inspiration, change in phlegm color or coughing up blood Gastrointestinal Reports: heartburn, constipation and difficulty swallowing; Denies: abdominal pain, nausea, vomiting, coffee grounds in vomit, diarrhea or belching Genitourinary Reports: urinary frequency and urinary urgency; Denies: painful urination, blood in urine, penile discharge or scrotal swelling Musculoskeletal Reports: back pain, neck pain, extremity pain, extremity swelling, joint pain, limited range of motion, muscle cramps, muscle weakness and loss of height; Denies: joint swelling Integumentary/Breast Reports: rash, itching, skin tenderness, skin swelling, sores, new lesion and non-healing lesion (buttocks); Denies: redness, skin pain or jaundice Neurological Reports: headache, numbness in extremities, weakness in extremities, lack of coordination, confusion, behavioral changes and difficulty communicating thoughts; Denies: dizziness, vertigo, slurred speech, seizure-like activity or involuntary movements Psychiatric Reports: mood swings, change in sleep pattern, loss of interest, memory loss and difficulty concentrating; Denies: anxiety, panic attacks, hopelessness, irritability, paranoia, visual hallucinations, auditory hallucinations, tactile hallucinations, suicidal ideation or homicidal ideation Endocrine Reports: fatigue; Denies: excessive urination, excessive thirst, cold intolerance, excessive sweating, flushing, heat intolerance or change in body appearance Hematologic/Lymphatic Denies: easy bruising, easy bleeding or enlarged lymph nodes Allergic/Immunologic Reports: wheezing; Denies: hives, throat swelling, tongue swelling, facial swelling or itchy eyes [facility] Medical History (Updated 12/07/24 @ 14:17 by Jane Ritchie DO) Decubitus ulcer, hip, right, unstageable Decubitus ulcer, hip, left, unstageable Decubitus ulcer of sacral region, unstageable Constipation CHF (congestive heart failure), NYHA class III End of life care Acute renal failure superimposed on stage 5 chronic kidney disease, not on chronic dialysis Moderate protein malnutrition Pruritic dermatitis Cognitive communication deficit BPH (benign prostatic hyperplasia) Secondary hyperparathyroidism (of renal origin) Chronic kidney disease, stage 4 (severe) Acute kidney failure Osteoarthritis Gout Cellulitis of groin GERD (gastroesophageal reflux disease) Peripheral vascular disease Heart failure Atherosclerotic heart disease Hypertension Glaucoma Toxic encephalopathy Sleep apnea Adrenocortical insufficiency Diabetes mellitus Anemia Urinary retention Vascular dementia of 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 behavioral disturbance Generalized edema Acute nephrotic syndrome ARF (acute respiratory failure) Melioidosis Difficulty in walking Dysphagia Acute cystitis without hematuria COPD (chronic obstructive pulmonary disease) CHF (congestive heart failure) Surgical History (Updated 12/07/24 @ 13:13 by Jane Rithcie DO) PEG (percutaneous endoscopic gastrostomy) status Social History Smoking status: never smoker Problems where you live: no known problems Highest level of school completed/degree received: decline to answer Feel stressed/tense/nervous/anxious/difficulty sleeping: not at all Life stressor details: n/a Due to disability, difficulty making decisions: No Do you think of yourself as: straight/heterosexual Gender Identity: male Meds Home Medications and Allergies Home Medications Medication Instructions Recorded Confirmed Type atorvastatin 40 mg tablet 40 mg feeding tube DAILY 01/29/24 11/30/24 History carvedilol 6.25 mg tablet 6.25 mg feeding tube BID 01/29/24 11/30/24 History fenofibrate 54 mg tablet 54 mg feeding tube BEDTIME 01/29/24 11/30/24 History furosemide 40 mg tablet 40 mg feeding tube DAILY 01/29/24 11/30/24 History ipratropium 0.5 mg-albuterol 3 mg 3 ml inhalation Q6H 01/29/24 11/30/24 History (2.5 mg base)/3 mL nebulization soln lansoprazole 30 mg capsule,delayed 30 mg feeding tube DAILY 01/29/24 11/30/24 History release montelukast 10 mg tablet 10 mg feeding tube BEDTIME 01/29/24 11/30/24 History nystatin 100,000 unit/gram topical 1 applic topical DAILY PRN YEAST 01/29/24 11/30/24 History powder (Nystop) oxycodone 5 mg tablet 5 mg feeding tube Q4H PRN pain 01/29/24 11/30/24 History tamsulosin 0.4 mg capsule 0.4 mg PO BID 01/29/24 11/30/24 History latanoprost 0.005 % eye drops 1 drp ophthalmic (eye) DAILY 06/21/24 11/30/24 History acetaminophen 325 mg tablet 650 mg PO Q6H PRN fever or pain 10/30/24 11/30/24 History ascorbic acid (vitamin C) 500 mg 500 mg PO DAILY 10/30/24 11/30/24 History tablet aspirin 81 mg chewable tablet 81 mg PO DAILY 10/30/24 11/30/24 History baclofen 10 mg tablet 10 mg PO Q8H PRN muscle spasm 10/30/24 11/30/24 History diphenhydramine HCl 25 mg tablet 50 mg PO Q8H PRN itching 10/30/24 11/30/24 History (Cjxfo-P-Uown) docusate sodium 50 mg/5 mL oral 100 mg feeding tube BID 10/30/24 11/30/24 History liquid mirtazapine 15 mg tablet 7.5 mg feeding tube BEDTIME 10/30/24 11/30/24 History multivitamin 1 tab feeding tube DAILY 10/30/24 11/30/24 History ondansetron HCl 4 mg tablet 4 mg feeding tube Q8H PRN nausea 10/30/24 11/30/24 History and vomiting polyethylene glycol 3350 17 gram 17 g PO BID PRN constipation 10/30/24 11/30/24 History oral powder packet (Miralax) pregabalin 50 mg capsule 50 mg feeding tube DAILY 10/30/24 11/30/24 History propylene glycol 1 %-glycerin 0.3 1 drp ophthalmic (eye) DAILY PRN 10/30/24 11/30/24 History % eye drops (Advanced Eye Relief) dry eye(s) sennosides 8.6 mg tablet (senna) 8.6 mg PO BEDTIME 10/30/24 11/30/24 History triamcinolone acetonide 55 mcg 1 spray intranasal BID 10/30/24 11/30/24 History nasal spray aerosol (24 Hour Nasal Allergy) bumetanide 2 mg tablet 2 mg PO DAILY chf #30 tabs 11/03/24 11/30/24 Rx ferrous sulfate 325 mg (65 mg 325 mg PO DAILY 11/30/24 11/30/24 History iron) tablet budesonide 0.5 mg/2 mL suspension 1 mg (4 mL) inhalation RBID #60 mL 12/03/24 Rx for nebulization levofloxacin 500 mg tablet 500 mg PO Q48H PNEUMONIA #4 tabs 12/03/24 Rx Allergies Allergy/AdvReac Type Severity Reaction Status Date / Time cefdinir Allergy Mild Verified 12/06/24 11:33 codeine Allergy Mild Verified 12/06/24 11:33 primidone Allergy Mild Verified 12/06/24 11:33 Exam 2 Constitutional: abnormal general appearance (disheveled), (chronically ill) and (frail appearing), no apparent distress, average body habitus, limitations noted (altered mental status) and (physical limitations) and alert Vital Signs - 24 hr 12/06/24 13:30 12/06/24 14:00 12/06/24 14:30 Temperature Pulse Rate 74 76 73 Pulse Rate [Bilate ral] Respiratory Rate 18 16 17 Blood Pressure 98/50 98/51 101/59 Blood Pressure [Ri ght Arm] Pulse Oximetry 97 96 97 Oxygen Delivery Me thod Nasal Cannula Nasal Cannula Nasal Cannula Oxygen Flow Rate 2 2 2 Fraction of Inspir ed Oxygen 12/06/24 15:00 12/06/24 15:31 12/06/24 16:01 Temperature 99.6 F Pulse Rate 73 74 67 Pulse Rate [Bilate ral] Respiratory Rate 16 18 16 Blood Pressure 100/51 98/58 83/55 Blood Pressure [Ri ght Arm] Pulse Oximetry 96 97 97 Oxygen Delivery Me thod Nasal Cannula Nasal Cannula Oxygen Flow Rate 2 2 Fraction of Inspir ed Oxygen 12/06/24 16:30 12/06/24 17:00 12/06/24 17:31 Temperature Pulse Rate 67 66 67 Pulse Rate [Bilate ral] Respiratory Rate 17 18 16 Blood Pressure 112/52 112/55 113/54 Blood Pressure [Ri ght Arm] Pulse Oximetry 97 97 95 Oxygen Delivery Me thod Nasal Cannula Oxygen Flow Rate 2 Fraction of Inspir ed Oxygen 12/06/24 18:01 12/06/24 18:30 12/06/24 19:01 Temperature Pulse Rate 65 62 63 Pulse Rate [Bilate ral] Respiratory Rate 17 17 16 Blood Pressure 136/55 149/56 117/57 Blood Pressure [Ri ght Arm] Pulse Oximetry 98 98 95 Oxygen Delivery Me thod Nasal Cannula Nasal Cannula Nasal Cannula Oxygen Flow Rate 2 2 2 Fraction of Inspir ed Oxygen 12/06/24 19:31 12/06/24 20:12 12/06/24 20:20 Temperature 99.4 F Pulse Rate 70 76 Pulse Rate [Bilate ral] 70 Respiratory Rate 17 16 15 Blood Pressure 133/55 105/65 Blood Pressure [Ri ght Arm] Pulse Oximetry 94 L 96 Oxygen Delivery Me thod Nasal Cannula Nasal Cannula Oxygen Flow Rate 2 2 Fraction of Inspir ed Oxygen 12/06/24 21:10 12/06/24 21:24 12/06/24 21:25 Temperature Pulse Rate 76 Pulse Rate [Bilate ral] Respiratory Rate Blood Pressure 105/65 Blood Pressure [Ri ght Arm] Pulse Oximetry 97 97 Oxygen Delivery Me thod Nasal Cannula Oxygen Flow Rate 2 Fraction of Inspir ed Oxygen 28 12/06/24 23:54 12/07/24 03:02 12/07/24 04:00 Temperature 99.4 F 99.4 F Pulse Rate Pulse Rate [Bilate ral] 70 70 Respiratory Rate 15 17 Blood Pressure Blood Pressure [Ri ght Arm] 115/53 111/45 Pulse Oximetry 96 96 96 Oxygen Delivery Me thod Nasal Cannula Nasal Cannula Oxygen Flow Rate Fraction of Inspir ed Oxygen 12/07/24 07:12 12/07/24 08:00 12/07/24 09:03 Temperature 100.9 F H Pulse Rate 81 Pulse Rate [Bilate ral] 81 Respiratory Rate 16 Blood Pressure 101/47 Blood Pressure [Ri ght Arm] 101/47 Pulse Oximetry 95 94 L Oxygen Delivery Me thod Nasal Cannula Oxygen Flow Rate 2 Fraction of Inspir ed Oxygen 12/07/24 09:08 12/07/24 09:09 12/07/24 12:00 Temperature 98.6 F Pulse Rate Pulse Rate [Bilate ral] 71 Respiratory Rate 18 Blood Pressure 101/47 101/47 Blood Pressure [Ri ght Arm] 92/49 Pulse Oximetry 96 Oxygen Delivery Me thod Nasal Cannula Oxygen Flow Rate 2 Fraction of Inspir ed Oxygen HENMT: normocephalic, head/scalp atraumatic, hearing grossly abnormal, TMs normal bilaterally, oral mucous membranes abnormal, dentition abnormal and gingiva abnormal patient is hard of hearing. Eyes: PERRL, EOMs intact bilaterally, conjunctivae normal, no scleral icterus, papilledema noted and periorbital findings normal Neck/C-Spine: trachea midline, cervical spine tenderness noted, abnormal cervical ROM noted, supple and no meningeal signs Lymph: no lymphadenopathy noted and no lymphedema noted Chest: inspection of chest normal and palpation of chest normal Respiratory: breath sounds unequal, normal respiratory effort, auscultation abnormal, no wheezes, no rales, no retractions and no use of accessory muscles Patient has congested breath sounds thorough out with the right sided being greatly reduced with nearly inaudible sounds on the right. Patient also has a rattle in the upper airway with deep inspirations, and a cough with every 3rd or 4th expiration. Cardiovascular: normal heart rate noted, regular rhythm noted, no gallop, no rub, murmur noted, no JVD, no clicks and no bruits noted Gastrointestinal: abdomen abnormal to inspection (peg in place), abdomen soft to palpation, nontender to palpation, nondistended, normoactive bowel sounds, hepatosplenomegaly noted, no masses, no pulsatile mass, no ascites and no hernia Genitourinary: no CVA tenderness, bladder abnormal to palpation (milian in place), external appearance normal, penis abnormal and scrotum normal Back/Pelvis: spine abnormal to inspection, thoracic spine tenderness noted, lumbar spine tenderness noted, thoracic spine ROM abnormal and lumbar spine ROM abnormal Extremities: abnormal to inspection, abnormal to palpation, tenderness noted, abnormal ROM noted, joint enlargement noted and deformity noted currently has heel protection boots in place Neurology: cranial nerve findings as noted:, movement abnormality noted, focal motor deficit noted, sensory deficit noted, deep tendon reflexes as noted:, gait abnormality noted, speech abnormality noted, coordination abnormality noted, no fasciculations noted and GCS normal Psychiatry: Mental Status Exam documented within this Exam's Psych section mental status grossly normal, orientation abnormal, thought process abnormality noted, cooperative, affect abnormality noted (depressed) and (tearful), psychomotor abnormality noted (disorganized) and (restless) and memory abnormal Feel stressed/tense/nervous/anxious/difficulty sleeping: not at all Skin: skin color abnormal, rash noted, lesion(s) noted, wound(s) noted, no lacerations, skin turgor abnormal, no jaundice, no petechiae, mottling noted, nails abnormality noted and alopecia noted Patient is reported to have a very large, painful, sacral wound and bilateral hip per his PCP that is currently quickly advancing into his hip bone structures. Assessment and Plan Assessment and Plan (1) Pneumonia of right lower lobe due to infectious organism: Code(s): J18.9 - Pneumonia, unspecified organism (2) Diabetes mellitus type 2 with complications: Code(s): E11.8 - Type 2 diabetes mellitus with unspecified complications (3) Constipation: Qualifiers: Constipation type: slow transit constipation Qualified Code(s): K59.01 - Slow transit constipation Code(s): K59.00 - Constipation, unspecified (4) Decubitus ulcer of sacral region, unstageable: Code(s): L89.150 - Pressure ulcer of sacral region, unstageable (5) End of life care: Code(s): Z51.5 - Encounter for palliative care (6) Hypoalbuminemia due to protein-calorie malnutrition: Code(s): E88.09 - Other disorders of plasma-protein metabolism, not elsewhere classified; E46 - Unspecified protein-calorie malnutrition (7) Hypoalbuminemia: Code(s): E88.09 - Other disorders of plasma-protein metabolism, not elsewhere classified (8) Chronic pain: Qualifiers: Chronic pain type: chronic pain syndrome Qualified Code(s): G89.4 - Chronic pain syndrome Code(s): G89.29 - Other chronic pain (9) Dysphagia as late effect of stroke: Code(s): I69.391 - Dysphagia following cerebral infarction (10) Debility: Code(s): R53.81 - Other malaise (11) 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: Code(s): E11.22 - Type 2 diabetes mellitus with diabetic chronic kidney disease; I12.9 - Hypertensive chronic kidney disease with stage 1 through stage 4 chronic kidney disease, or unspecified chronic kidney disease; N18.4 - Chronic kidney disease, stage 4 (severe) (12) Urinary retention due to benign prostatic hyperplasia: Code(s): N40.1 - Benign prostatic hyperplasia with lower urinary tract symptoms; R33.8 - Other retention of urine (13) Altered mental status: Qualifiers: Altered mental status type: delirium Qualified Code(s): R41.0 - Disorientation, unspecified Code(s): R41.82 - Altered mental status, unspecified (14) CHF (congestive heart failure), NYHA class III: Qualifiers: Congestive heart failure type: combined Congestive heart failure chronicity: chronic Qualified Code(s): I50.42 - Chronic combined systolic (congestive) and diastolic (congestive) heart failure Code(s): I50.9 - Heart failure, unspecified (15) Anemia: Qualifiers: Anemia type: iron deficiency Iron deficiency anemia type: inadequate dietary iron intake Qualified Code(s): D50.8 - Other iron deficiency anemias Code(s): D64.9 - Anemia, unspecified (16) Acute renal failure superimposed on stage 5 chronic kidney disease, not on chronic dialysis: Qualifiers: Acute renal failure type: unspecified Qualified Code(s): N17.9 - Acute kidney failure, unspecified; N18.5 - Chronic kidney disease, stage 5 Code(s): N17.9 - Acute kidney failure, unspecified; N18.5 - Chronic kidney disease, stage 5 (17) Pruritic dermatitis: Code(s): L30.8 - Other specified dermatitis (18) Moderate protein malnutrition: Code(s): E44.0 - Moderate protein-calorie malnutrition (19) Dysphagia: Qualifiers: Dysphagia type: pharyngoesophageal phase Qualified Code(s): R13.14 - Dysphagia, pharyngoesophageal phase Code(s): R13.10 - Dysphagia, unspecified (20) 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 Qualified Code(s): J43.8 - Other emphysema Code(s): J44.9 - Chronic obstructive pulmonary disease, unspecified (21) Decubitus ulcer, hip, left, unstageable: Code(s): L89.220 - Pressure ulcer of left hip, unstageable (22) Decubitus ulcer, hip, right, unstageable: Code(s): L89.210 - Pressure ulcer of right hip, unstageable Plan turn patient every 2 hours and prn rectal tube not available will order some milian cath to drainage 0.9% NS at 125 ml per hour levaquin 500 mg po every 48 hours care and comfort daughter refused to transfer the patient to higher level of care morphine 4 mg IV every 4 hours prn severe pain tylenol 1000 mg IV if peg not working prn for mild pain and fever continue feeds as residuals allow Results Labs Labs: CBC 12/07/24 Range/Units 04:10 WBC 9.3 (3.7-9.6) K/uL RBC 2.7 L (4.40-5.80) M/uL Hgb 8.8 L (14.0-17.4) gm/dL Hct 26.9 L (41.3-50.1) % Plt Count 134 L (142-355) K/uL Gran % 77.0 H (49.1-73.1) % Lymph % (Auto) 12.3 L (17.6-39.05) % [place] % (Auto) 7.9 (4.5-10.7) % Eos % (Auto) 2.7 (0.0-4.0) % Baso % (Auto) 0.1 (0.0-1.3) Lymph # (Auto) 1.1 (0.8-2.9) [place] # (Auto) 0.7 (0.2-0.8) Eos # (Auto) 0.2 (0.0-0.3) Baso # (Auto) 0.0 (0.0-0.1) Absolute Gran (auto) 7.1 H (2.0-6.2) CMP 12/07/24 04:10 Sodium 145 Potassium 4.2 Chloride 113.0 H Carbon Dioxide 27 BUN 129 H* Creatinine 3.3 H Glucose 110 Calcium 8.3 L Urine 12/06/24 11:52 Urine Color Yellow Urine Appearance Clear Ur Specific [place] 1.025 Urine Protein Trace Urine Glucose (UA) Normal
[2024-12-08 05:54] LABS: Basophils%(Percent) Auto 0.4 (0.0-1.3); Monocytes #(Absolute)- Auto 0.8 (0.2-0.8); Platelet Count 135 K/uL (142-355)
[2024-12-08 05:56] LABS: Eosinophils#(Absolute)Auto 0.4 (0.0-0.3); Granulocytes % - Auto 78.6 % (49.1-73.1); Granulocytes#(Absolute)- Auto 8.6 (2.0-6.2); Hematocrit 27.4 % (41.3-50.1); Mean Corpuscular Volume 100.3 fl (81.9-96.5)
[2024-12-08 06:50] LABS: Potassium 4.1 mmol/L (3.6-5.2)
--- NOTE | 2024-12-08 10:53 | Progress Note ---
Progress Note: Subjective Subjective Interval history: Patient is continue to have difficulty maintaining room stability nurses continue to clean. Patient continues to moan in pain anytime he is moved or aroused although he is able to speak this morning one-word answers seem to be appropriate. Patient refused to be suctioned this a.m. and tolerated breathing treatment fairly well. Continue to have discussion with daughter and son about end-of-life care and they finally agreed to discuss options with hospice groups today and hopefully something could be arranged to keep him comfortable as they do not want to have him transferred aggressive care although they do want to continue fluids and IV antibiotics as patient tolerates Exam 2 Constitutional: abnormal general appearance (disheveled), (chronically ill) and (frail appearing), no apparent distress, abnormal body habitus (cachectic), limitations noted (altered mental status) and (physical limitations) and alert Vital Signs - 24 hr 12/07/24 12:00 12/07/24 14:05 12/07/24 16:00 Temperature 98.6 F 97.9 F Pulse Rate [Bilate ral] 71 69 Respiratory Rate 18 20 Blood Pressure [Ri ght Arm] 92/49 121/53 Pulse Oximetry 96 96 97 Oxygen Delivery Me thod Nasal Cannula Nasal Cannula Oxygen Flow Rate 2 2 Fraction of Inspir ed Oxygen 12/07/24 19:20 12/07/24 19:26 12/07/24 23:49 Temperature 97.7 F 98.2 F Pulse Rate [Bilate ral] 60 65 Respiratory Rate 16 17 Blood Pressure [Ri ght Arm] 87/62 102/47 Pulse Oximetry 97 99 91 L Oxygen Delivery Me thod Nasal Cannula Nasal Cannula Oxygen Flow Rate Fraction of Inspir ed Oxygen 12/08/24 00:33 12/08/24 03:08 12/08/24 07:29 Temperature 99.8 F H 97.7 F Pulse Rate [Bilate ral] 68 64 Respiratory Rate 19 20 Blood Pressure [Ri ght Arm] 101/81 131/62 Pulse Oximetry 91 L 93 L 95 Oxygen Delivery Me thod Nasal Cannula Nasal Cannula Room Air Oxygen Flow Rate 2 Fraction of Inspir ed Oxygen 12/08/24 09:09 Temperature Pulse Rate [Bilate ral] Respiratory Rate Blood Pressure [Ri ght Arm] Pulse Oximetry 95 Oxygen Delivery Me thod Oxygen Flow Rate Fraction of Inspir ed Oxygen HENMT: normocephalic, head/scalp atraumatic, hearing grossly abnormal, TMs normal bilaterally, nasal mucous membranes normal, oral mucous membranes abnormal, oropharynx abnormal, dentition abnormal and gingiva abnormal patient is hard of hearing. Eyes: PERRL, EOMs intact bilaterally, conjunctivae normal, no scleral icterus, papilledema noted and periorbital findings normal Neck/C-Spine: abnormal to visual inspection, trachea midline, cervical spine tenderness noted, abnormal cervical ROM noted, supple, no meningeal signs, thyroid normal and no carotid bruits Lymph: no lymphadenopathy noted and no lymphedema noted Chest: inspection of chest normal, palpation of chest normal and inspection of breasts normal Respiratory: breath sounds unequal, normal respiratory effort, auscultation abnormal, wheezing noted (scattered wheezes) (left), rales noted, no retractions and no use of accessory muscles Cardiovascular: normal heart rate noted, regular rhythm noted, no gallop, no rub, murmur noted, no JVD, no clicks, peripheral pulses as noted: and no bruits noted Gastrointestinal: abdomen abnormal to inspection (peg in place), abdomen soft to palpation, nontender to palpation, nondistended, normoactive bowel sounds, hepatosplenomegaly noted, no masses, no pulsatile mass, no ascites and no hernia Genitourinary: no CVA tenderness, bladder abnormal to palpation (milian in place), external appearance normal, penis abnormal and scrotum normal Back/Pelvis: spine abnormal to inspection, thoracic spine tenderness noted, lumbar spine tenderness noted, thoracic spine ROM abnormal and lumbar spine ROM abnormal Extremities: abnormal to inspection, abnormal to palpation, tenderness noted, abnormal ROM noted, joint enlargement noted and deformity noted currently has heel protection boots in place Neurology: cranial nerve findings as noted:, movement abnormality noted, focal motor deficit noted, sensory deficit noted, deep tendon reflexes as noted:, gait abnormality noted, speech abnormality noted, coordination abnormality noted, no fasciculations noted and GCS normal Psychiatry: Mental Status Exam documented within this Exam's Psych section mental status grossly normal, orientation abnormal, thought process abnormality noted, cooperative, affect abnormality noted (depressed) and (tearful), psychomotor abnormality noted (disorganized) and (restless) and memory abnormal Feel stressed/tense/nervous/anxious/difficulty sleeping: not at all Skin: skin color abnormal, rash noted, lesion(s) noted, ecchymosis noted, wound(s) noted, no lacerations, skin turgor abnormal, no jaundice, no petechiae, mottling noted, nails abnormality noted and alopecia noted Patient is reported to have a very large, painful, sacral wound and bilateral hip per his PCP that is currently quickly advancing into his hip bone structures. 12/07/2024 Progress Note: Objective Labs Labs: CBC 12/08/24 Range/Units 05:20 WBC 11.0 H (3.7-9.6) K/uL RBC 2.7 L (4.40-5.80) M/uL Hgb 9.2 L (14.0-17.4) gm/dL Hct 27.4 L (41.3-50.1) % Plt Count 135 L (142-355) K/uL Gran % 78.6 H (49.1-73.1) % Lymph % (Auto) 10.0 L (17.6-39.05) % [place] % (Auto) 7.0 (4.5-10.7) % Eos % (Auto) 4.0 (0.0-4.0) % Baso % (Auto) 0.4 (0.0-1.3) Lymph # (Auto) 1.1 (0.8-2.9) [place] # (Auto) 0.8 (0.2-0.8) Eos # (Auto) 0.4 H (0.0-0.3) Baso # (Auto) 0.0 (0.0-0.1) Absolute Gran (auto) 8.6 H (2.0-6.2) CMP 12/08/24 05:20 Sodium 146 H Potassium 4.1 Chloride 116.0 H Carbon Dioxide 22 BUN 122 H* Creatinine 3.4 H Glucose 97 Calcium 8.0 L Urine 12/06/24 11:52 Urine Color Yellow Urine Appearance Clear Ur Specific [place] 1.025 Urine Protein Trace Urine Glucose (UA) Normal Pulse Oximetry Attestation: I have reviewed the pertinent pulse oximetry results. Progress Note: A&P Assessment and Plan (1) Carbapenem-resistant Acinetobacter baumannii infection: (2) Pneumonia of right lower lobe due to infectious organism: (3) Diabetes mellitus type 2 with complications: (4) Constipation: Qualifiers: Constipation type: slow transit constipation Qualified Code(s): K59.01 - Slow transit constipation (5) Decubitus ulcer of sacral region, unstageable: (6) End of life care: (7) Hypoalbuminemia due to protein-calorie malnutrition: (8) Hypoalbuminemia: (9) Chronic pain: Qualifiers: Chronic pain type: chronic pain syndrome Qualified Code(s): G89.4 - Chronic pain syndrome (10) Dysphagia as late effect of stroke: (11) Debility: (12) 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: (13) Urinary retention due to benign prostatic hyperplasia: (14) Altered mental status: Qualifiers: Altered mental status type: delirium Qualified Code(s): R41.0 - Disorientation, unspecified (15) CHF (congestive heart failure), NYHA class III: Qualifiers: Congestive heart failure type: combined Congestive heart failure chronicity: chronic Qualified Code(s): I50.42 - Chronic combined systolic (congestive) and diastolic (congestive) heart failure (16) Anemia: Qualifiers: Anemia type: iron deficiency Iron deficiency anemia type: inadequate dietary iron intake Qualified Code(s): D50.8 - Other iron deficiency anemias (17) Acute renal failure superimposed on stage 5 chronic kidney disease, not on chronic dialysis: Qualifiers: Acute renal failure type: unspecified Qualified Code(s): N17.9 - Acute kidney failure, unspecified; N18.5 - Chronic kidney disease, stage 5 (18) Pruritic dermatitis: (19) Moderate protein malnutrition: (20) Dysphagia: Qualifiers: Dysphagia type: pharyngoesophageal phase Qualified Code(s): R13.14 - Dysphagia, pharyngoesophageal phase (21) 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 Qualified Code(s): 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 - Other emphysema (22) Decubitus ulcer, hip, left, unstageable: (23) Decubitus ulcer, hip, right, unstageable: (24) Bacterial UTI: Plan turn patient every 2 hours and prn rectal tube not available will order some Milian cath to drainage 0.9% NS at 125 ml per hour Levaquin 500 mg po every 48 hours care and comfort daughter refused to transfer the patient to higher level of care morphine 4 mg IV every 4 hours prn severe pain Tylenol 1000 mg IV if peg not working prn for mild pain and fever continue feeds as residuals allow Change antibiotic from Levaquin to gentamicin secondary to positive urine culture this a.m. Discussed options of sending patient to [place] for surgical intervention of decub as well as hospice for comfort and care measures. After a lengthy conversation with patient and her brother they have decided to talk to several different hospices today and decide at that time if they will be allowed to do IV antibiotics or antibiotics as needed then they will consider this option. Fall Risk Details [place] Fall Scale Risk Level: High Fall Risk Current Medications: Current Medications Albuterol Sulfate (Ipratropium/Albuterol Sulfate 3 Ml Ampul.Neb) 3 ml INH RQ6 [facility] Last Admin: 12/08/24 09:08 Dose: 3 ml Ascorbic Acid (Ascorbic Acid 500 Mg Tablet) 500 mg PO DAILY [facility] Last Admin: 12/08/24 09:19 Dose: 500 mg Aspirin (Aspirin 81 Mg Tab.Chew) 81 mg PO DAILY [facility] Last Admin: 12/08/24 09:19 Dose: 81 mg Baclofen (Baclofen 10 Mg Tablet) 10 mg PO Q8H PRN PRN Reason: muscle spasm Budesonide (Budesonide 0.5 Mg/2 Ml Ampul.Neb) 1 mg INH RBID [facility] Last Admin: 12/08/24 09:08 Dose: 1 mg Fenofibrate (Fenofibrate 54 Mg Tablet) 54 mg PO BEDTIME [facility] Last Admin: 12/07/24 20:15 Dose: 54 mg Ferrous Sulfate (Ferrous Sulfate 325 Mg Tablet) 325 mg PO DAILY [facility] Last Admin: 12/08/24 09:19 Dose: 325 mg Sodium Chloride (Sodium Chloride) 1,000 mls @ 125 mls/hr IV CONT [facility] Last Admin: 12/08/24 03:09 Dose: 125 mls/hr Acetaminophen (Acetaminophen 1000 Mg/100 Ml) 1,000 mg in 100 mls @ 400 mls/hr IV Q6H PRN PRN Reason: Fever OF 100.5 OR GREATER Last Admin: 12/08/24 03:09 Dose: 400 mls/hr Latanoprost (Latanoprost 0.005% 2.5 Ml Drops) 1 drop OPTH DAILY [facility] Last Admin: 12/08/24 09:19 Dose: 1 drop Levofloxacin (Levofloxacin 500 Mg Tablet) 500 mg PO Q48H [facility] Mirtazapine (Mirtazapine 15 Mg Tablet) 7.5 mg PO BEDTIME [facility] Last Admin: 12/07/24 20:15 Dose: 7.5 mg Morphine Sulfate (Morphine Sulfate 4 Mg/Ml Cartridge) 4 mg IV Q4H PRN PRN Reason: Severe Pain SCALE 8-10 Last Admin: 12/08/24 01:15 Dose: 4 mg Multivitamins (Multivitamin Tablet) 1 each PEG DAILY [facility] Last Admin: 12/08/24 09:19 Dose: 1 each Docusate 50mg/5ml (Liquid) 100 mg PO BID [facility] Last Admin: 12/08/24 09:19 Dose: Not Given Propylene Glycol- Glycerin 1-0.3% Eye Drops 1 drop OPTH DAILY PRN PRN Reason: dry eye(s) Triamcinolone Acetonide 55 Mcg Nasal [place] 1 spray MISC BID [facility] Last Admin: 12/08/24 09:21 Dose: Not Given Nystatin (Nystatin 15 Gm Powder) 1 gm TOPICAL DAILY PRN PRN Reason: YEAST Ondansetron HCl (Ondansetron Hcl/Pf 4 Mg/2 Ml Vial) 4 mg INJ Q6H PRN PRN Reason: Nausea And Vomiting Pantoprazole Sodium (Pantoprazole Sodium 40 Mg Tablet.Dr) 40 mg PO DAILY [facility] Last Admin: 12/08/24 09:18 Dose: 40 mg Polyethylene Glycol (Polyethylene Glycol 3350 17 Gm Powd.Pack) 17 gm PO BID PRN PRN Reason: constipation Pregabalin (Pregabalin 25 Mg Capsule) 50 mg PO DAILY [facility] Last Admin: 12/08/24 09:18 Dose: 50 mg Senna (Sennosides 8.6 Mg Tablet) 8.6 mg PO BEDTIME [facility] Last Admin: 12/07/24 20:15 Dose: 8.6 mg Tamsulosin HCl (Tamsulosin Hcl 0.4 Mg Capsule) 0.4 mg PO BID [facility] Last Admin: 12/08/24 09:19 Dose: 0.4 mg Time Spent With Patient Time: Total time spent is greater than 50% in coordination of care (as documented) at patient's floor/unit and/or counseling patient: Time with patient: greater than 35 minutes
[2024-12-08] MEDS: GENTAMICIN IV ONE (12:56)
[2024-12-08] MEDS: SODIUM CHLORIDE 0.9% IV ONE (12:56)
[2024-12-08] MEDS: SCOPOLAMINE 1 EACH PATCH.TD.3 TD SCH (13:51)
[2024-12-08] MEDS: ALBUMIN HUMAN 25% 100 ML IV ONE (13:51)
[2024-12-08] MEDS: DEXTROSE 5 %-0.45 % SOD CHLORD 1,000 ML IV SCH (14:20)
[2024-12-08] MEDS: HYOSCYAMINE SULFATE 0.125 MG/ML DROPS PEG PRN (16:55)
[2024-12-08] MEDS: levoFLOXacin 500 MG TABLET PO SCH (20:15)
[2024-12-09 06:47] LABS: Basophils%(Percent) Auto 0.2 (0.0-1.3); Eosinophils#(Absolute)Auto 0.2 (0.0-0.3); Eosinophils%(Percent) Auto 2.5 % (0.0-4.0); Granulocytes % - Auto 76.2 % (49.1-73.1); Granulocytes#(Absolute)- Auto 6.7 (2.0-6.2); Hematocrit 24.1 % (41.3-50.1); Monocytes #(Absolute)- Auto 0.8 (0.2-0.8); Monocytes %(Percent)- Auto 9.4 % (4.5-10.7); Platelet Count 124 K/uL (142-355); White Blood Count 8.8 K/uL (3.7-9.6)
[2024-12-09 07:13] LABS: Potassium 4.2 mmol/L (3.6-5.2)
[2024-12-09] MEDS: ALBUMIN HUMAN 25% 100 ML IV SCH (10:30)
[2024-12-09] MEDS: HYOSCYAMINE SULFATE 0.125 MG/ML DROPS NG-TUBE PRN (11:00)
[2024-12-10 08:23] VITALS: TEMP 100
[2024-12-10 11:48] VITALS: BP 108/41; PULSE 76; RESP 12
--- NOTE | 2024-12-10 13:19 | Discharge Summary ---
DS: Providers Provider Date of admission: 12/06/24 18:51 Primary care physician: Jane Ritchie DO Admitting clinician: Drake Delgado Attending physician on admission: Jane Ritchie Consults: 12/06/24 11:43 Consult to Hospitalist Routine Comment: Consulting Provider: Jane Ritchie Physician Instructions: Reason for consultation: possible admission for monitoring, fever and pain control 12/08/24 10:39 Consult to Hospice Referral Routine Comment: Consulting Provider: Physician Instructions: Reason for consultation: infection, renal failure, failure to thrive Attending physician on discharge: Jane Ritchie Discharging clinician: Jane Ritchie DS: Diagnosis Discharge Diagnosis (1) Carbapenem-resistant Acinetobacter baumannii infection: (2) Decubitus ulcer of sacral region, unstageable: Assessment and plan: suspect infected under the escar. 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: (13) Urinary retention due to benign prostatic hyperplasia: (14) Altered mental status: Qualifiers: Altered mental status type: delirium Qualified Code(s): R41.0 - Disorientation, unspecified (15) CHF (congestive heart failure), NYHA class III: Qualifiers: Congestive heart failure chronicity: chronic Congestive heart failure type: combined Qualified Code(s): I50.42 - Chronic combined systolic (congestive) and diastolic (congestive) heart failure (16) Anemia: Qualifiers: Anemia type: iron deficiency Iron deficiency anemia type: inadequate dietary iron intake Qualified Code(s): D50.8 - Other iron deficiency anemias (17) Acute renal failure superimposed on stage 5 chronic kidney disease, not on chronic dialysis: Qualifiers: Acute renal failure type: unspecified Qualified Code(s): N17.9 - Acute kidney failure, unspecified; N18.5 - Chronic kidney disease, stage 5 (18) Pruritic dermatitis: (19) Moderate protein malnutrition: (20) Dysphagia: Qualifiers: Dysphagia type: pharyngoesophageal phase Qualified Code(s): R13.14 - Dysphagia, pharyngoesophageal phase (21) 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 Patient admitted back in the Med Surg for pneumonia aspiration low albumin and daughter refusal of transfer to [place] for more aggressive care or to agree to hospice or continued comfort care. Patient has suspected UTI awaiting culture and has chronic Milian secondary to Urinary retention from enlarged prostate. Patient stage 5 renal failure with chronic uremia and pruritus and Juanpablo are having difficulty understanding the pain of there farther and the fact that despite best efforts we cannot control infection and patient is currently not able to absorb the nutrition and gut6 not functioning enough to meet nutritional goals. Patient currently to [facility] for [facility] and to many things going on with infections and break down and she states she understands and if hgb drops to 7.5 we can give a unit of blood but not until then and on day of hospice admit it was 7.9 on the labs albumin replaced daily as tolerated by patient and still remains at 1.7 despite replacement with caution due to CHF history. BP and BS medicine held secondary to hypotension and low blood sugars and patient unable to tolerate gut feeds D5 had to keep running to avoid symptomatic hypoglycemia. daughter refused transfer on 12/06/2024 and 12/07/2024 for debridement of the sacrum decubitus as she did want to put him through the procedure and verbalized both days again that she understood swabing the skin or thick escar is not a viable culture to direct treatment change fevers persisted until the day of discharge and on 12/08/2024 despite oral Levaquin being changed to gentamicin and only one dose given as trough still above 4 so second dose not yest scheduled. Demarcus from hospice finally was able to talk the patient out of continuing the IV nor the oral antibiotics. after daily and multi daily education and questioning from the children they finally agreed to hospice and after 2 days of searching various agencies the daughter finally agreed to go with [facility] Status at Discharge Overall status at discharge: patient is not back to baseline Time Spent with Patient Time attestation: Total time spent providing and/or coordinating discharge services: 64 Time spent: greater than 30 minutes Exam 2 Constitutional: abnormal general appearance (disheveled), (chronically ill) and (frail appearing), distress noted (moderate) (audible secretions in his throat), abnormal body habitus (cachectic), limitations noted (altered mental status) and (physical limitations) and alert Vital Signs - 24 hr 12/09/24 14:40 12/09/24 15:57 12/09/24 19:34 Temperature 98.5 F 101.1 F H Pulse Rate [Bilate ral] 71 69 Respiratory Rate 17 16 Blood Pressure [Ri ght Arm] 97/45 128/54 Pulse Oximetry 97 93 L 85 L Oxygen Delivery Me thod Nasal Cannula Room Air Oxygen Flow Rate 2 Fraction of Inspir ed Oxygen 12/09/24 20:46 12/09/24 20:47 12/09/24 23:49 Temperature 98.8 F Pulse Rate [Bilate ral] 72 Respiratory Rate 13 Blood Pressure [Ri ght Arm] 106/46 Pulse Oximetry 93 L 93 L 93 L Oxygen Delivery Me thod Nasal Cannula Room Air Nasal Can nula Oxygen Flow Rate 2 Fraction of Inspir ed Oxygen 12/10/24 03:21 12/10/24 07:31 12/10/24 08:00 Temperature 98.2 F 100.0 F H Pulse Rate [Bilate ral] 67 78 Respiratory Rate 22 22 Blood Pressure [Ri ght Arm] 110/62 113/66 Pulse Oximetry 98 92 L 88 L Oxygen Delivery Me thod Nasal Cannula Nasal Cannula Oxygen Flow Rate 2 Fraction of Inspir ed Oxygen 2 12/10/24 11:46 Temperature Pulse Rate [Bilate ral] 76 Respiratory Rate 12 Blood Pressure [Ri ght Arm] 108/41 Pulse Oximetry 86 L Oxygen Delivery Me thod Nasal Cannula Oxygen Flow Rate 3 Fraction of Inspir ed Oxygen HENMT: normocephalic, head/scalp atraumatic, hearing grossly abnormal, TMs normal bilaterally, nasal mucous membranes normal, oral mucous membranes abnormal, oropharynx abnormal, dentition abnormal and gingiva abnormal patient is hard of hearing. Eyes: PERRL, EOMs intact bilaterally, conjunctivae normal, no scleral icterus, papilledema noted and periorbital findings normal Neck/C-Spine: abnormal to visual inspection, trachea midline, cervical spine tenderness noted, abnormal cervical ROM noted, supple, no meningeal signs, thyroid normal and no carotid bruits Lymph: no lymphadenopathy noted and no lymphedema noted Chest: inspection of chest normal, palpation of chest normal and inspection of breasts normal Respiratory: breath sounds unequal, normal respiratory effort, auscultation abnormal, wheezing noted (scattered wheezes) (left), rales noted, no retractions and no use of accessory muscles Cardiovascular: normal heart rate noted, regular rhythm noted, no gallop, no rub, murmur noted, no JVD, no clicks, peripheral pulses as noted: and no bruits noted Gastrointestinal: abdomen abnormal to inspection (peg in place), abdomen soft to palpation, nontender to palpation, nondistended, normoactive bowel sounds, hepatosplenomegaly noted, no masses, no pulsatile mass, no ascites and no hernia Genitourinary: no CVA tenderness, bladder abnormal to palpation (milian in place), external appearance normal, penis abnormal and scrotum normal Back/Pelvis: spine abnormal to inspection, thoracic spine tenderness noted, lumbar spine tenderness noted, thoracic spine ROM abnormal and lumbar spine ROM abnormal Extremities: abnormal to inspection, abnormal to palpation, tenderness noted, abnormal ROM noted, joint enlargement noted and deformity noted currently has heel protection boots in place Neurology: cranial nerve findings as noted:, movement abnormality noted, focal motor deficit noted, sensory deficit noted, deep tendon reflexes as noted:, gait abnormality noted, speech abnormality noted, coordination abnormality noted, no fasciculations noted and GCS normal Psychiatry: Mental Status Exam documented within this Exam's Psych section mental status grossly normal, orientation abnormal, thought process abnormality noted, cooperative, affect abnormality noted (depressed) and (tearful), psychomotor abnormality noted (disorganized) and (restless) and memory abnormal Feel stressed/tense/nervous/anxious/difficulty sleeping: not at all Skin: skin color abnormal, rash noted, lesion(s) noted, ecchymosis noted, wound(s) noted, no lacerations, skin turgor abnormal, no jaundice, no petechiae, mottling noted, nails abnormality noted and alopecia noted Patient is reported to have a very large, painful, sacral wound and bilateral hip per his PCP that is currently quickly advancing into his hip bone structures. 12/07/2024 DS: Data Data Completed and Pending Labs on day of discharge: Labs from last 24 hours 12/09/24 12:50 Gentamicin Trough 4.4 H* Preliminary micro results at discharge 12/06/24 12:00 Blood Culture - Preliminary Blood - Venous Draw (Peripheral) 12/06/24 11:50 Blood Culture - Preliminary Blood - Venous Draw (Peripheral) Discharge Plan Discharge Disposition: Hospice Care Condition: Other Discharge Medications: Continued latanoprost 0.005 % drops 1 drp OPHTHALMIC (EYE) DAILY acetaminophen 325 mg tablet 650 mg PO Q6H PRN (Reason: fever or pain) ascorbic acid (vitamin C) 500 mg tablet 500 mg PO DAILY aspirin 81 mg tablet,chewable 81 mg PO DAILY baclofen 10 mg tablet 10 mg PO Q8H PRN (Reason: muscle spasm) docusate sodium 50 mg/5 mL liquid 100 mg feeding tube BID multivitamin Tablet 1 tab feeding tube DAILY Advanced Eye Relief 1-0.3 % drops 1 drp ophthalmic (eye) DAILY PRN (Reason: dry eye(s)) lansoprazole 30 mg capsule,delayed release(DR/EC) 30 mg feeding tube DAILY ipratropium-albuterol 0.5 mg-3 mg(2.5 mg base)/3 mL solution for nebulization 3 ml inhalation Q6H ferrous sulfate 325 mg (65 mg iron) tablet 325 mg PO DAILY budesonide 0.5 mg/2 mL Suspension For Nebulization 1 mg inhalation RBID Qty: 60 0RF Discontinued diphenhydramine HCl [Sbjxe-H-Camh] 25 mg tablet 50 mg PO Q8H PRN (Reason: itching) pregabalin 50 mg capsule 50 mg feeding tube DAILY polyethylene glycol 3350 [Miralax] 17 gram powder in packet 17 g PO BID PRN (Reason: constipation) mirtazapine 15 mg tablet 7.5 mg feeding tube BEDTIME triamcinolone acetonide [24 Hour Nasal Allergy] 55 mcg aerosol,spray 1 spray intranasal BID Rx Instructions: administer into each nostril sennosides [senna] 8.6 mg tablet 8.6 mg PO BEDTIME ondansetron HCl 4 mg tablet 4 mg feeding tube Q8H PRN (Reason: nausea and vomiting) bumetanide 2 mg tablet 2 mg PO DAILY Qty: 30 0RF Rx Instructions: daily weights atorvastatin 40 mg tablet 40 mg feeding tube DAILY fenofibrate 54 mg tablet 54 mg feeding tube BEDTIME tamsulosin 0.4 mg capsule 0.4 mg PO BID Rx Instructions: G-TUBE furosemide 40 mg tablet 40 mg feeding tube DAILY carvedilol 6.25 mg tablet 6.25 mg feeding tube BID montelukast 10 mg tablet 10 mg feeding tube BEDTIME oxycodone 5 mg tablet 5 mg feeding tube Q4H PRN (Reason: pain) nystatin [Nystop] 100,000 unit/gram powder 1 applic TOPICAL DAILY PRN (Reason: YEAST) Rx Instructions: APPLY TO PERINEAL AREA PRN FOR YEAST UNTIL HEALED OR RESOLVED levofloxacin 500 mg Tablet 500 mg PO Q48H Qty: 4 0RF Discharge Orders: Discharge Order (Routine); Ordered 12/10/24 Ordered By: Jane Ritchie Activity: increase activity as tolerated Diet: other Interventions: Discharge Assessment Last Done: 12/10/24 11:50 MED/SURG & ICU Observation Charge Sheet Last Done: 12/10/24 11:49 Print Language: [place] Patient Instructions: Hospice Care (GEN) Activity Restrictions/Additional Instructions: further care and orders per [facility] Forms: Portal/Health Info Access Inst Follow-Ups: Jane Ritchie DO [Primary Care Provider, Medical] Discharge Date/Time: 12/10/24 12:34
--- NOTE | 2024-12-10 13:41 | Progress Note ---
Progress Note: Subjective Subjective Interval history: Patient is continue to have difficulty maintaining room stability nurses continue to clean. Patient continues to moan in pain anytime he is moved or aroused although he is able to rest and seems to be appropriate responses to conversations around him with smiles or grimaces. Patient tolerated breathing treatment fairly well. Continue to have discussion with daughter and son about end-of-life care and they finally agreed to discuss options with hospice groups today still searching for one that will allow IV antibiotics if needed and hopefully something could be arranged to keep him comfortable as they do not want to have him transferred aggressive care although they do want to continue fluids and IV antibiotics as patient tolerates Exam 2 Constitutional: abnormal general appearance (disheveled), (chronically ill) and (frail appearing), no apparent distress, abnormal body habitus (cachectic), limitations noted (altered mental status) and (physical limitations) and alert Vital Signs - 24 hr 12/09/24 14:40 12/09/24 15:57 12/09/24 19:34 Temperature 98.5 F 101.1 F H Pulse Rate [Bilate ral] 71 69 Respiratory Rate 17 16 Blood Pressure [Ri ght Arm] 97/45 128/54 Pulse Oximetry 97 93 L 85 L Oxygen Delivery Me thod Nasal Cannula Room Air Oxygen Flow Rate 2 Fraction of Inspir ed Oxygen 12/09/24 20:46 12/09/24 20:47 12/09/24 23:49 Temperature 98.8 F Pulse Rate [Bilate ral] 72 Respiratory Rate 13 Blood Pressure [Ri ght Arm] 106/46 Pulse Oximetry 93 L 93 L 93 L Oxygen Delivery Me thod Nasal Cannula Room Air Nasal Can nula Oxygen Flow Rate 2 Fraction of Inspir ed Oxygen 12/10/24 03:21 12/10/24 07:31 12/10/24 08:00 Temperature 98.2 F 100.0 F H Pulse Rate [Bilate ral] 67 78 Respiratory Rate 22 22 Blood Pressure [Ri ght Arm] 110/62 113/66 Pulse Oximetry 98 92 L 88 L Oxygen Delivery Me thod Nasal Cannula Nasal Cannula Oxygen Flow Rate 2 Fraction of Inspir ed Oxygen 2 12/10/24 11:46 Temperature Pulse Rate [Bilate ral] 76 Respiratory Rate 12 Blood Pressure [Ri ght Arm] 108/41 Pulse Oximetry 86 L Oxygen Delivery Me thod Nasal Cannula Oxygen Flow Rate 3 Fraction of Inspir ed Oxygen HENMT: normocephalic, head/scalp atraumatic, hearing grossly abnormal, TMs normal bilaterally, nasal mucous membranes normal, oral mucous membranes abnormal, oropharynx abnormal, dentition abnormal and gingiva abnormal patient is hard of hearing. Eyes: PERRL, EOMs intact bilaterally, conjunctivae normal, no scleral icterus, papilledema noted and periorbital findings normal Neck/C-Spine: abnormal to visual inspection, trachea midline, cervical spine tenderness noted, abnormal cervical ROM noted, supple, no meningeal signs, thyroid normal and no carotid bruits Lymph: no lymphadenopathy noted and no lymphedema noted Chest: inspection of chest normal, palpation of chest normal and inspection of breasts normal Respiratory: breath sounds unequal, normal respiratory effort, auscultation abnormal, wheezing noted (scattered wheezes) (left), rales noted, no retractions and no use of accessory muscles Cardiovascular: normal heart rate noted, regular rhythm noted, no gallop, no rub, murmur noted, no JVD, no clicks, peripheral pulses as noted: and no bruits noted Gastrointestinal: abdomen abnormal to inspection (peg in place), abdomen soft to palpation, nontender to palpation, nondistended, normoactive bowel sounds, hepatosplenomegaly noted, no masses, no pulsatile mass, no ascites and no hernia Genitourinary: no CVA tenderness, bladder abnormal to palpation (milian in place), external appearance normal, penis abnormal and scrotum normal Back/Pelvis: spine abnormal to inspection, thoracic spine tenderness noted, lumbar spine tenderness noted, thoracic spine ROM abnormal and lumbar spine ROM abnormal Extremities: abnormal to inspection, abnormal to palpation, tenderness noted, abnormal ROM noted, joint enlargement noted and deformity noted currently has heel protection boots in place Neurology: cranial nerve findings as noted:, movement abnormality noted, focal motor deficit noted, sensory deficit noted, deep tendon reflexes as noted:, gait abnormality noted, speech abnormality noted, coordination abnormality noted, no fasciculations noted and GCS normal Psychiatry: Mental Status Exam documented within this Exam's Psych section mental status grossly normal, orientation abnormal, thought process abnormality noted, cooperative, affect abnormality noted (depressed) and (tearful), psychomotor abnormality noted (disorganized) and (restless) and memory abnormal Feel stressed/tense/nervous/anxious/difficulty sleeping: not at all Skin: skin color abnormal, rash noted, lesion(s) noted, ecchymosis noted, wound(s) noted, no lacerations, skin turgor abnormal, no jaundice, no petechiae, mottling noted, nails abnormality noted and alopecia noted Patient is reported to have a very large, painful, sacral wound and bilateral hip per his PCP that is currently quickly advancing into his hip bone structures. 12/07/2024 Progress Note: Objective Labs Labs: Urine 12/06/24 11:52 Urine Color Yellow Urine Appearance Clear Ur Specific [place] 1.025 Urine Protein Trace Urine Glucose (UA) Normal Progress Note: A&P Assessment and Plan (1) Carbapenem-resistant Acinetobacter baumannii infection: (2) Decubitus ulcer of sacral region, unstageable: 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: (13) Urinary retention due to benign prostatic hyperplasia: (14) Altered mental status: Qualifiers: Altered mental status type: delirium Qualified Code(s): R41.0 - Disorientation, unspecified (15) CHF (congestive heart failure), NYHA class III: Qualifiers: Congestive heart failure type: combined Congestive heart failure chronicity: chronic Qualified Code(s): I50.42 - Chronic combined systolic (congestive) and diastolic (congestive) heart failure (16) Anemia: Qualifiers: Anemia type: iron deficiency Iron deficiency anemia type: inadequate dietary iron intake Qualified Code(s): D50.8 - Other iron deficiency anemias (17) Acute renal failure superimposed on stage 5 chronic kidney disease, not on chronic dialysis: Qualifiers: Acute renal failure type: unspecified Qualified Code(s): N17.9 - Acute kidney failure, unspecified; N18.5 - Chronic kidney disease, stage 5 (18) Pruritic dermatitis: (19) Moderate protein malnutrition: (20) Dysphagia: Qualifiers: Dysphagia type: pharyngoesophageal phase Qualified Code(s): R13.14 - Dysphagia, pharyngoesophageal phase (21) 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 Qualified Code(s): J43.8 - Other emphysema (22) Decubitus ulcer, hip, left, unstageable: (23) Decubitus ulcer, hip, right, unstageable: (24) Bacterial UTI: Plan turn patient every 2 hours and prn rectal tube not available will order some Milian cath to drainage D/50.9% NS at 100 ml per hour Levaquin 500 mg po every 48 hours stopped today and Gentamicin given yesterday and awaiting trough to show need for a future dose of gentamicin safely care and comfort daughter refused to transfer the patient to higher level of care morphine 4 mg IV every 4 hours prn severe pain Tylenol 1000 mg IV if peg not working prn for mild pain and fever continue feeds as residuals allow Change antibiotic from Levaquin to gentamicin secondary to positive urine culture yesterday Discussed options of sending patient to [place] for surgical intervention of decub as well as hospice for comfort and care measures. After a lengthy conversation with patient and her brother they have decided to talk to several different hospices today and decide at that time if they will be allowed to do IV antibiotics or antibiotics as needed then they will consider this option. Fall Risk Details [place] Fall Scale Risk Level: High Fall Risk Time Spent With Patient Time: Total time spent is greater than 50% in coordination of care (as documented) at patient's floor/unit and/or counseling patient: Time with patient: greater than 35 minutes
== END 2024-12-10 12:34 | disposition hospice, home (50) | DRG 178 ==
LOC: MS 11:22 → ED 11:22 → OBSVTOIN 18:51 → MS 20:20
PROVIDERS: ADMIT Nurse Practitioner Family; ATTEND Family Medicine
DX: L30.8 Other specified dermatitis; D50.8 Other iron deficiency anemias; Z79.899 Other long term (current) drug therapy; R41.0 Disorientation, unspecified; L89.220 Pressure ulcer of left hip, unstageable; L89.150 Pressure ulcer of sacral region, unstageable; R53.81 Other malaise; N18.5 Chronic kidney disease, stage 5; I50.42 Chronic combined systolic (congestive) and diastolic (congestive) heart failure; L89.210 Pressure ulcer of right hip, unstageable; R13.14 Dysphagia, pharyngoesophageal phase; E44.0 Moderate protein-calorie malnutrition; Z88.1 Allergy status to other antibiotic agents; Z51.5 Encounter for palliative care; E11.22 Type 2 diabetes mellitus with diabetic chronic kidney disease; Z88.5 Allergy status to narcotic agent; J43.8 Other emphysema; N17.9 Acute kidney failure, unspecified; Z88.8 Allergy status to other drugs, medicaments and biological substances; J69.0 Pneumonitis due to inhalation of food and vomit; E88.09 Other disorders of plasma-protein metabolism, not elsewhere classified; N40.1 Benign prostatic hyperplasia with lower urinary tract symptoms; R33.8 Other retention of urine; I13.2 Hypertensive heart and chronic kidney disease with heart failure and with stage 5 chronic kidney disease, or end stage renal disease; I69.391 Dysphagia following cerebral infarction; N39.0 Urinary tract infection, site not specified; K59.01 Slow transit constipation; G89.4 Chronic pain syndrome; Z79.82 Long term (current) use of aspirin; Z93.1 Gastrostomy status; Z16.13 Resistance to carbapenem; Z68.27 Body mass index [BMI] 27.0-27.9, adult